=== PATIENT | female | born 1960 | race African-American/Black ===

== ENCOUNTER 2017-10-22 13:28 | Inpatient (IN) | payer OTHER ==
[~2017-10-22] VITALS: Ht 180.3 cm; Wt 113.4 kg
[~2017-10-22 13:28] MED LIST: AMBIEN10 M1 ORAL; AMLODIPINE BESY10 MG PO; ATENOLOL25 MG ORAL; BENTYL20 M1 PO; DILAUDID2 MG ORAL; DONNATAL E16.2 MG/2 PO; FLEXERIL10 MG PO; FLUOXETINE HCL20 M2 ORAL; GLUCOPHAGE500 MG PO; HYDROCHLOROTHIA25 MG ORAL; IBUPROFEN800 MG ORAL; IMITREX50 MG ORAL; LEVAQUIN500 MG ORAL; LIDOCAINE VISCO20 ML PO; MECLIZINE HCL25 MG ORAL; METFORMIN HCL500 M1 ORAL; MIRALAX17 G2 ORAL; NEURONTIN300 MG PO; NORCO 10-325 T1 EACH ORAL; NORCO 10/3251 EA ORAL; NORCO 5-325 TA1 EACH ORAL; NORCO 5-325 TA1 EACH PO; OMEPRAZOLE20 M3 ORAL; PERCOCET 10-321 EACH ORAL; PERCOCET 5-3251 EACH ORAL; PHENERGAN25 M1 ORAL; PHENERGAN6.25 MG/5 ORAL; POTASSIUM CHLO20 ME1 ORAL; PREDNISONE20 MG ORAL; PRILOSEC40 MG ORAL; PROAIR HFA8.5 GM IH; PROAIR HFA8.5 GM INH; PROTONIX20 MG ORAL; PROTONIX40 M2 GT; PROTONIX40 MG ORAL; PROZAC20 MG ORAL; RANITIDINE HCL150 MG ORAL; ROBAXIN-750750 MG PO; ROBAXIN500 MG PO; SENNA8.6 M2 PO; SOMA350 MG PO; TAGAMET HB200 MG PO; TAGAMET400 MG ORAL; TYLENOL ARTHRI650 M1 PO; XANAX2 MG ORAL; ZESTRIL20 MG PO; ZOFRAN ODT4 MG ORAL; ZOFRAN4 M1 ORAL; ZYPREXA ZYDIS10 MG ORAL
[2017-10-22 14:24] VITALS: BP 145/100
[2017-10-22] MEDS ORDERED: Mylanta II UD 30ml ORAL ONE (14:45)
[2017-10-22] MEDS ORDERED: Lidocaine 2% Visc 15ml soln ORAL ONE (14:45)
[2017-10-22 14:48] LABS: BASOPHILS % (AUTO) 0.8 % (0.0-2.0); EOSINOPHILS % (AUTO) 0.1 % (0.0-3.0); LYMPHOCYTES % (AUTO) 15.3 % (20.0-45.0); MEAN CORPUSCULAR HEMOGLOBIN 29.8 PG (27.0-31.0); MEAN CORPUSCULAR HGB CONC 32.5 G/DL (32.0-36.0); MEAN CORPUSCULAR VOLUME 92 FL (80-99); MEAN PLATELET VOLUME 6.5 FL (6.5-10.1); MONOCYTES % (AUTO) 11.2 % (1.0-10.0); NEUTROPHILS % (AUTO) 72.7 % (45.0-75.0); PLATELET COUNT 425 K/UL (150-450); RED CELL DISTRIBUTION WIDTH 13.4 % (11.6-14.8)
[2017-10-22 15:07] LABS: APPEARANCE,URINE CLEAR; KETONES,URINE 1+ (NEGATIVE); LEUKOCYTE ESTERASE ,URINE 1+ (NEGATIVE); NITRITE,URINE NEGATIVE (NEGATIVE); PH,URINE 6 (4.5-8.0); PROTEIN,URINE 3+ (NEGATIVE); UROBILINOGEN,URINE NORMAL MG/DL (0.0-1.0)
[2017-10-22 15:15] LABS: BACTERIA,URINE FEW /HPF; SQUAMOUS EPITHELIAL CELL,UR FEW /LPF (NONE/OCC)
[2017-10-22 15:16] LABS: AMORPHOUS SEDIMENT,UR FEW /LPF
[2017-10-22 15:20] LABS: ALANINE AMINOTRANSFERASE 24 U/L (12-78); ANION GAP 16 mmol/L (5-15); ASPARTATE AMINO TRANSFERASE 24 U/L (15-37); CALCIUM 10.3 MG/DL (8.5-10.1); CARBON DIOXIDE 25 MMOL/L (21-32); CHLORIDE 94 MMOL/L (98-107); CKMB 1.4 NG/ML (0.0-3.6); GLOMERULAR FILTRATION RATE 57.4 mL/min (>60); POTASSIUM 3.3 MMOL/L (3.5-5.1); SODIUM 135 MMOL/L (136-145); TOTAL PROTEIN 8.7 G/DL (6.4-8.2)
[2017-10-22] MEDS ORDERED: Morphine Sulfate 4mg/ml Inj IVP ONE (16:15)
[2017-10-22] MEDS ORDERED: KCl 10% 40mEq/30ml liquid ORAL ONE (16:30)
--- NOTE | 2017-10-22 16:33 | Emergency Room Report ---
History of Present Illness General Chief Complaint: Chest Pain Source: Patient Present Illness HPI The patient states that she has had nausea, vomiting, epigastric pain and a burning sensation in her chest and upper abdomen for the past week. She states that these symptoms have been getting worse. She states that she cannot keep any liquid or any oral intake of any type down. She states she vomits about 12 times a day. She does have a history of gastritis and has had similar symptoms but states that it has been about a year since she's had an episode. She admits that the initial symptoms were nausea, vomiting and diarrhea. She said that the diarrhea has since resolved. She denies fever or chills. She denies dysuria or hematuria. She has no other complaints. Allergies: Coded Allergies: FEXOFENADINE HCL (Verified Allergy, Severe, Shortness of Breath, 08/12/12) IBUPROFEN (Verified Allergy, Severe, Hives, 08/12/12) IODINE (Verified Allergy, Severe, Hives, 08/12/12) MORPHINE (Unverified Allergy, Unknown, 09/17/14) Patient History Past Medical History: see triage record, HTN, psych hx - depression, bipolar Past Surgical History: other - laminectomy Social History: Denies: smoking, alcohol use, drug use Last Menstrual Period: N/A Reviewed Nursing Documentation: PMH: Agreed, PSxH: Agreed Nursing Documentation-PMH Hx Cardiac Problems: Yes Hx Hypertension: Yes Hx Pacemaker: No Hx Asthma: Yes Hx COPD: No Hx Diabetes: No Hx Cancer: No Hx Gastrointestinal Problems: Yes - CHRONIC GASTRITIS Hx Dialysis: No Hx Neurological Problems: No Hx Cerebrovascular Accident: No Hx Seizures: No Review of Systems All Other Systems: negative except mentioned in HPI Physical Exam Vital Signs Date Time Temp Pulse Resp B/P (MAP) Pulse Ox O2 Delivery O2 Flow Rate FiO2 10/22/17 13:49 103 17 160/109 100 Room Air 10/22/17 14:24 98.8 Sp02 EP Interpretation: reviewed, normal General Appearance: no apparent distress, alert, GCS 15, non-toxic Head: normocephalic, atraumatic Eyes: bilateral eye normal inspection, bilateral eye PERRL ENT: hearing grossly normal, normal pharynx, no angioedema, normal voice Neck: full range of motion, supple/symm/no masses Respiratory: chest non-tender, lungs clear, normal breath sounds, speaking full sentences Cardiovascular #1: regular rate, rhythm, no edema Gastrointestinal: normal bowel sounds, soft, non-distended, no guarding, no rebound, tenderness - TTP over the episgastrium Rectal: deferred Musculoskeletal: back normal, gait/station normal, normal range of motion Neurologic: alert, oriented x3, responsive, motor strength/tone normal, sensory intact, speech normal Psychiatric: judgement/insight normal, memory normal, mood/affect normal, no suicidal/homicidal ideation Skin: normal color, no rash, warm/dry, well hydrated Medical Decision Making Diagnostic Impression: Primary Impression: Gastritis Additional Impression: Nausea, vomiting, and diarrhea ER Course This patient presents with intractable vomiting and gastritis. The patient has a history of this. Patient also has chronic pain in a history of of fluid withdrawal. Urine drug screen was positive for barbiturates, benzodiazepines and THC. There may be a component of this contributing to the patient's symptoms. Overall, the patient's laboratory workup was benign other than a mild hypokalemia and findings consistent with dehydration. Patient was given IV fluids and gastritis treatment. Patient continued to have pain and vomiting. She is admitted for intractable vomiting and dehydration. The patient's insurance company requested her transfer to another hospital. The patient is stable for transfer and was transferred due to PCP privileges. Laboratory Tests Test 10/22/17 14:24 White Blood Count 13.0 K/UL (4.8-10.8) H Red Blood Count 6.00 M/UL (4.20-5.40) H Hemoglobin 17.9 G/DL (12.0-16.0) H Hematocrit 55.0 % (37.0-47.0) H Mean Corpuscular Volume 92 FL (80-99) Mean Corpuscular Hemoglobin 29.8 PG (27.0-31.0) Mean Corpuscular Hemoglobin Concent 32.5 G/DL (32.0-36.0) Red Cell Distribution Width 13.4 % (11.6-14.8) Platelet Count 425 K/UL (150-450) Mean Platelet Volume 6.5 FL (6.5-10.1) Neutrophils (%) (Auto) 72.7 % (45.0-75.0) Lymphocytes (%) (Auto) 15.3 % (20.0-45.0) L Monocytes (%) (Auto) 11.2 % (1.0-10.0) H Eosinophils (%) (Auto) 0.1 % (0.0-3.0) Basophils (%) (Auto) 0.8 % (0.0-2.0) Urine Color Yellow Urine Appearance Clear Urine pH 6 (4.5-8.0) Urine Specific [place] 1.015 (1.005-1.035) Urine Protein 3+ (NEGATIVE) H Urine Glucose (UA) Negative (NEGATIVE) Urine Ketones 1+ (NEGATIVE) H Urine Occult Blood 1+ (NEGATIVE) H Urine Nitrite Negative (NEGATIVE) Urine Bilirubin Negative (NEGATIVE) Urine Urobilinogen Normal MG/DL (0.0-1.0) Urine Leukocyte Esterase 1+ (NEGATIVE) H Urine RBC 2-4 /HPF (0 - 2) H Urine WBC 2-4 /HPF (0 - 2) Urine Squamous Epithelial Cells Few /LPF (NONE/OCC) Urine Amorphous Sediment Few /LPF (NONE) H Urine Bacteria Few /HPF (NONE) Sodium Level 135 MMOL/L (136-145) L Potassium Level 3.3 MMOL/L (3.5-5.1) L Chloride Level 94 MMOL/L (98-107) L Carbon Dioxide Level 25 MMOL/L (21-32) Anion Gap 16 mmol/L (5-15) H Blood Urea Nitrogen 11 mg/dL (7-18) Creatinine 1.0 MG/DL (0.55-1.30) Estimate Glomerular Filtration Rate 57.4 mL/min (>60) Glucose Level 107 MG/DL (74-106) H Calcium Level 10.3 MG/DL (8.5-10.1) H Total Bilirubin 0.7 MG/DL (0.2-1.0) Aspartate Amino Transferase (AST) 24 U/L (15-37) Alanine Aminotransferase (ALT) 24 U/L (12-78) Alkaline Phosphatase 115 U/L (46-116) Total Creatine Kinase 153 U/L (26-308) Creatine Kinase MB 1.4 NG/ML (0.0-3.6) Creatine Kinase MB Relative Index 0.9 Troponin I 0.012 ng/mL (0.000-0.056) Total Protein 8.7 G/DL (6.4-8.2) H Albumin 4.4 G/DL (3.4-5.0) Globulin 4.3 g/dL Albumin/Globulin Ratio 1.0 (1.0-2.7) Urine Opiates Screen Negative (NEGATIVE) Urine Barbiturates Screen Positive (NEGATIVE) H Phencyclidine (PCP) Screen Negative (NEGATIVE) Urine Amphetamines Screen Negative (NEGATIVE) Urine Benzodiazepines Screen Positive (NEGATIVE) H Urine Cocaine Screen Negative (NEGATIVE) Urine Marijuana (THC) Screen Positive (NEGATIVE) H EKG Diagnostic Results Rate: tachycardiac Rhythm: other ST Segments: no acute changes Other Impression S.tachycardia Rhythm Strip Diag. Results EP Interpretation: yes Rate: 90's Rhythm: NSR, no PVC's, no ectopy Chest X-Ray Diagnostic Results Chest X-Ray Diagnostic Results : Chest X-Ray Ordered: Yes # of Views/Limited/Complete: 1 View Indication: Other - epigastric pain EP Interpretation: Yes Interpretation: no consolidation, no effusion, no pneumothorax, no acute cardiopulmonary disease Impression: No acute disease Last Vital Signs Date Time Temp Pulse Resp B/P (MAP) Pulse Ox O2 Delivery O2 Flow Rate FiO2 10/22/17 14:54 107 16 Room Air 10/22/17 14:24 98.8 145/100 100 Disposition: XFER SHT-TRM HOSP Condition: Stable Referrals: [facility],REFERRING (PCP) YVES CARTER D.O. Oct 22, 2017 16:33
--- NOTE | 2017-10-22 17:44 | Diagnostic Imaging Report ---
Indication: Chest pain Technique: One view of the chest Comparison: none Findings: No acute infiltrates, effusions, or congestion. Tortuous calcified aorta. Normal heart size. Upper mediastinum unremarkable. No significant change Impression: No acute process.
[2017-10-22 18:06] LABS: BASOPHILS % (AUTO) 0.8 % (0.0-2.0); EOSINOPHILS % (AUTO) 0.1 % (0.0-3.0); LYMPHOCYTES % (AUTO) 17.4 % (20.0-45.0); MEAN CORPUSCULAR HEMOGLOBIN 30.6 PG (27.0-31.0); MEAN CORPUSCULAR HGB CONC 33.4 G/DL (32.0-36.0); MEAN CORPUSCULAR VOLUME 92 FL (80-99); MEAN PLATELET VOLUME 5.8 FL (6.5-10.1); MONOCYTES % (AUTO) 14.7 % (1.0-10.0); NEUTROPHILS % (AUTO) 66.9 % (45.0-75.0); PLATELET COUNT 420 K/UL (150-450); RED BLOOD COUNT 5.31 M/UL (4.20-5.40); RED CELL DISTRIBUTION WIDTH 13.2 % (11.6-14.8); WHITE BLOOD COUNT 11.5 K/UL (4.8-10.8)
[2017-10-22 18:28] LABS: ANION GAP 14 mmol/L (5-15); CALCIUM 9.4 MG/DL (8.5-10.1); CARBON DIOXIDE 27 MMOL/L (21-32); CHLORIDE 100 MMOL/L (98-107); CREATININE 1.1 MG/DL (0.55-1.30); GLOMERULAR FILTRATION RATE 51.3 mL/min (>60); POTASSIUM 3.2 MMOL/L (3.5-5.1); SODIUM 141 MMOL/L (136-145)
[2017-10-22] MEDS ORDERED: AMLODIPINE BESY10 MG ORAL (19:10)
[2017-10-22] MEDS ORDERED: CARVEDILOL3.125 MG ORAL (19:11)
[2017-10-22 19:16] VITALS: BP 144/86
[2017-10-22] MEDS ORDERED: FLUOXETINE HCL40 MG ORAL (19:16)
[2017-10-22] MEDS ORDERED: GABAPENTIN600 MG ORAL (19:17)
[2017-10-22] MEDS ORDERED: LANSOPRAZOLE30 MG ORAL (19:18)
[2017-10-22] MEDS ORDERED: ALEVE PM CAPLE1 EACH PO (19:25)
[2017-10-22] MEDS ORDERED: [UNRECOGNIZED DRUG - OTHER] PO (19:25)
[2017-10-22] MEDS ORDERED: ALPRAZOLAM1 MG ORAL (19:27)
[2017-10-22] MEDS ORDERED: PROBIOTIC PEAR1 EACH PO (19:31)
[2017-10-22 21:16] VITALS: BP 136/79
[2017-10-22] MEDS ORDERED: Morphine Sulfate 2mg/ml Inj IM PRN (23:15)
[2017-10-22] MEDS: Metoclopramide 10mg/2ml Inj IVP PRN (23:32)
[2017-10-23] VITALS (8 sets, daily range): BP systolic 116–161; BP diastolic 75–95
[2017-10-23] MEDS: Metoclopramide 10mg/2ml Inj IVP PRN (05:25)
[2017-10-23 07:03] LABS: BASOPHILS % (AUTO) 1.2 % (0.0-2.0); EOSINOPHILS % (AUTO) 0.4 % (0.0-3.0); MEAN CORPUSCULAR HGB CONC 32.7 G/DL (32.0-36.0); MEAN CORPUSCULAR VOLUME 92 FL (80-99); MEAN PLATELET VOLUME 6.2 FL (6.5-10.1); MONOCYTES % (AUTO) 13.7 % (1.0-10.0); NEUTROPHILS % (AUTO) 66.8 % (45.0-75.0); PLATELET COUNT 411 K/UL (150-450); RED BLOOD COUNT 4.75 M/UL (4.20-5.40); RED CELL DISTRIBUTION WIDTH 13.4 % (11.6-14.8); WHITE BLOOD COUNT 9.7 K/UL (4.8-10.8)
[2017-10-23 07:32] LABS: ALANINE AMINOTRANSFERASE 16 U/L (12-78); ALBUMIN/GLOBULIN RATIO 0.9 (1.0-2.7); ANION GAP 10 mmol/L (5-15); ASPARTATE AMINO TRANSFERASE 16 U/L (15-37); CALCIUM 8.9 MG/DL (8.5-10.1); CARBON DIOXIDE 27 MMOL/L (21-32); CHLORIDE 102 MMOL/L (98-107); GLOMERULAR FILTRATION RATE > 60 mL/min (>60); SODIUM 139 MMOL/L (136-145); TOTAL PROTEIN 7.2 G/DL (6.4-8.2)
--- NOTE | 2017-10-23 08:05 | General Progress Note ---
Assessment/Plan Assessment/Plan (1) Lumbar degenerative disc disease (2) Lumbar spondylosis (3) Herniated nucleus pulposus, lumbar (4) Lumbar radiculopathy (5) History of lumbar surgery We will continue Morphine 2mg IV Q4H PRN severe pain. Pt was d/w Dr. Keller and he concurred. Thank you for the courtesy of this consultation. Subjective Date patient seen: Oct 23, 2017 Time patient seen: 07:30 - am Allergies: Coded Allergies: FEXOFENADINE HCL (Verified Allergy, Severe, Shortness of Breath, 08/12/12) IBUPROFEN (Verified Allergy, Severe, Hives, 08/12/12) IODINE (Verified Allergy, Severe, Hives, 08/12/12) Subjective Constitutional: Denies: chills, diaphoresis, fever, malaise, no symptoms, other , weakness HEENT: Denies: blurred vision, double vision, ear discharge, ear pain, eye pain , mouth pain, mouth swelling, no symptoms, nose congestion, nose pain, other, tearing, throat pain, throat swelling Cardiovascular: Denies: chest pain, edema, irregular heart rate, lightheadedness, no symptoms, other, palpitations, syncope Respiratory: Denies: SOB at rest, SOB with excertion, cough, no symptoms, orthopnea, other, shortness of breath, sputum, stridor, wheezing Gastrointestinal/Abdominal: Reports: abdominal pain, N/V Genitourinary: Denies: burning, discharge, flank pain, frequency, hematuria, incontinence, no symptoms, other, pain, urgency Neurologic/Psychiatric: Denies: anxiety, depressed, emotional problems, headache, no symptoms, numbness, other, paresthesia, pre-existing deficit, seizure, tingling, tremors, weakness Endocrine: Denies: excessive sweating, flushing, increased hunger, increased thirst, increased urine, intolerance to cold, intolerance to heat, no symptoms, other, unexplained weight gain, unexplained weight loss Hematologic/Lymphatic: Denies: anemia, easy bleeding, easy bruising, no symptoms, other Subjective Pt is a known patient from prior admission and has been admitted due to N/V. Continues to c/o lower back pain due to pervious surgery. She was given a dose of Morphine in the ER with no SE or reaction and we started the patient on Morphine 2mg IV Q4H PRN severe pain at this time her pain has been tolerated well and is waiting to be seen by GI. Objective Last 24 Hour Vital Signs Date Time Temp Pulse Resp B/P (MAP) Pulse Ox O2 Delivery O2 Flow Rate FiO2 10/23/17 04:26 98.4 10/23/17 04:00 98.1 88 19 140/75 95 10/23/17 00:31 98.4 10/23/17 00:00 98.6 90 20 141/95 94 10/22/17 21:34 98.8 97 15 136/79 98 Room Air 10/22/17 21:16 98.4 97 15 136/79 98 Room Air 10/22/17 19:16 98.8 96 12 144/86 99 Room Air 10/22/17 17:15 98.8 10/22/17 14:54 107 16 Room Air 10/22/17 14:24 98.8 107 16 145/100 100 Room Air 10/22/17 13:49 103 17 160/109 100 Room Air Laboratory Tests 10/22/17 14:24: White Blood Count 13.0H, Red Blood Count 6.00H, Hemoglobin 17.9H, Hematocrit 55.0H, Mean Corpuscular Volume 92, Mean Corpuscular Hemoglobin 29.8, Mean Corpuscular Hemoglobin Concent 32.5, Red Cell Distribution Width 13.4, Platelet Count 425, Mean Platelet Volume 6.5, Neutrophils (%) (Auto) 72.7, Lymphocytes (% ) (Auto) 15.3L, Monocytes (%) (Auto) 11.2H, Eosinophils (%) (Auto) 0.1, Basophils (%) (Auto) 0.8, Urine Color Yellow, Urine Appearance Clear, Urine pH 6 , Urine Specific [place] 1.015, Urine Protein 3+H, Urine Glucose (UA) Negative, Urine Ketones 1+H, Urine Occult Blood 1+H, Urine Nitrite Negative, Urine Bilirubin Negative, Urine Urobilinogen Normal, Urine Leukocyte Esterase 1+H, Urine RBC 2-4H, Urine WBC 2-4, Urine Squamous Epithelial Cells Few, Urine Amorphous Sediment FewH, Urine Bacteria Few, Sodium Level 135L, Potassium Level 3.3L, Chloride Level 94L, Carbon Dioxide Level 25, Anion Gap 16H, Blood Urea Nitrogen 11, Creatinine 1.0, Estimat Glomerular Filtration Rate 57.4, Glucose Level 107H, Calcium Level 10.3H, Total Bilirubin 0.7, Aspartate Amino Transf ( AST/SGOT) 24, Alanine Aminotransferase (ALT/SGPT) 24, Alkaline Phosphatase 115, Total Creatine Kinase 153, Creatine Kinase MB 1.4, Creatine Kinase MB Relative Index 0.9, Troponin I 0.012, Total Protein 8.7H, Albumin 4.4, Globulin 4.3, Albumin/Globulin Ratio 1.0, Urine Opiates Screen Negative, Urine Barbiturates Screen PositiveH, Phencyclidine (PCP) Screen Negative, Urine Amphetamines Screen Negative, Urine Benzodiazepines Screen PositiveH, Urine Cocaine Screen Negative, Urine Marijuana (THC) Screen PositiveH 10/22/17 17:25: White Blood Count 11.5H, Red Blood Count 5.31, Hemoglobin 16.3H, Hematocrit 48.7H, Mean Corpuscular Volume 92, Mean Corpuscular Hemoglobin 30.6, Mean Corpuscular Hemoglobin Concent 33.4, Red Cell Distribution Width 13.2, Platelet Count 420, Mean Platelet Volume 5.8L, Neutrophils (%) (Auto) 66.9, Lymphocytes ( %) (Auto) 17.4L, Monocytes (%) (Auto) 14.7H, Eosinophils (%) (Auto) 0.1, Basophils (%) (Auto) 0.8, Sodium Level 141, Potassium Level 3.2L, Chloride Level 100, Carbon Dioxide Level 27, Anion Gap 14, Blood Urea Nitrogen 10, Creatinine 1.1, Estimat Glomerular Filtration Rate 51.3, Glucose Level 101, Calcium Level 9.4, Lipase 91 10/23/17 05:40: White Blood Count 9.7, Red Blood Count 4.75, Hemoglobin 14.2, Hematocrit 43.5, Mean Corpuscular Volume 92, Mean Corpuscular Hemoglobin 30.0, Mean Corpuscular Hemoglobin Concent 32.7, Red Cell Distribution Width 13.4, Platelet Count 411, Mean Platelet Volume 6.2L, Neutrophils (%) (Auto) 66.8, Lymphocytes (%) (Auto) 18.0L, Monocytes (%) (Auto) 13.7H, Eosinophils (%) (Auto) 0.4, Basophils (%) ( Auto) 1.2, Sodium Level 139, Potassium Level 3.0L, Chloride Level 102, Carbon Dioxide Level 27, Anion Gap 10, Blood Urea Nitrogen 10, Creatinine 1.0, Estimat Glomerular Filtration Rate > 60, Glucose Level 108H, Calcium Level 8.9, Total Bilirubin 0.6, Aspartate Amino Transf (AST/SGOT) 16, Alanine Aminotransferase ( ALT/SGPT) 16, Alkaline Phosphatase 90, Total Protein 7.2, Albumin 3.4, Globulin 3.8, Albumin/Globulin Ratio 0.9L Height (Feet): 5 Height (Inches): 11.00 Weight (Pounds): 250 Objective General Appearance: no apparent distress, alert EENT: PERRL/EOMI, normal ENT inspection Neck: normal alignment, supple Cardiovascular: normal rate, regular rhythm Respiratory/Chest: lungs clear, normal breath sounds Abdomen: tender Extremities: non-tender Edema: no edema noted Arm (L), no edema noted Arm (R), no edema noted Leg (L), no edema noted Leg (R), no edema noted Pedal (L), no edema noted Pedal (R), no edema noted Generalized Neurologic: alert, oriented x 3 Skin: warm/dry EVELIA BARCLAY N. PAlfonso Oct 23, 2017 08:05
--- NOTE | 2017-10-23 10:58 | Consultation ---
Consult Note Consult Note The patient states that she has had nausea, vomiting, epigastric pain and a burning sensation in her chest and upper abdomen for the past week. She states that these symptoms have been getting worse. She states that she cannot keep any liquid or any oral intake of any type down. She states she vomits about 12 times a day. She does have a history of gastritis and has had similar symptoms but states that it has been about a year since she's had an episode. She admits that the initial symptoms were nausea, vomiting and diarrhea. She said that the diarrhea has since resolved. She denies fever or chills. She denies dysuria or hematuria. She has no other complaints. Allergies: Coded Allergies: FEXOFENADINE HCL (Verified Allergy, Severe, Shortness of Breath, 08/12/12) IBUPROFEN (Verified Allergy, Severe, Hives, 08/12/12) IODINE (Verified Allergy, Severe, Hives, 08/12/12) MORPHINE (Unverified Allergy, Unknown, 09/17/14) Past Medical History: see triage record, HTN, psych hx - depression, bipolar Past Surgical History: other - laminectomy Hx Cardiac Problems: Yes Hx Hypertension: Yes Hx Asthma: Yes Hx Gastrointestinal Problems: Yes - CHRONIC GASTRITIS interviewed examined data reviewed Assessment/Plan status; dehydration- Electrolyte imbalance- Obesity- chronic pain Poly substance abuse UTI HTN Plan: Hydrate- K supplement- keep BP in check check A1c and Lipids NURIA PLATA Oct 23, 2017 10:58
[2017-10-23 11:15] LABS: CHOLESTEROL 237 MG/DL (< 200); CHOLESTEROL/HDL RATIO 2.9 (3.3-4.4); PHOSPHORUS 2.9 MG/DL (2.5-4.9)
[2017-10-23 11:16] LABS: HEMOGLOBIN A1C 6.3 % (4.3-6.0)
[2017-10-23] MEDS: Morphine Sulfate 2mg/ml Inj IVP PRN ×3 (11:21→23:12)
[2017-10-23] MEDS ORDERED: Potassium Chloride 40 MEQ/NS 550ML IVPB ONE ×2 (12:30)
--- NOTE | 2017-10-23 13:03 | Diagnostic Imaging Report ---
Indication: Abdominal pain nausea, vomiting and 6 days Technique: Mcginnis-scale and duplex images of the upper abdomen were obtained Comparison: 09/21/2015 Findings: Gallbladder is unremarkable, without stones, wall thickening, nor pericholecystic fluid. Sonographic Eastman's sign is negative. Common bile duct measures 6 mm in diameter. No intrahepatic biliary ductal dilatation. Liver demonstrates normal echogenicity, no focal abnormality. Portal vein and hepatic veins are patent. Pancreas is unremarkable. Spleen is unremarkable. Left kidney measures 10.7 cm in length. Right kidney measures 10.4 cm length. Both kidneys demonstrate normal echogenicity. There is no hydronephrosis. No focal abnormality . Non-aneurysmal abdominal aorta . No significant interim change Impression: Negative
--- NOTE | 2017-10-23 16:52 | Cardiology Report ---
APPROVED REPORT EKG Measurement Heart [id number] Sinus tachycardia Right atrial enlargement Nonspecific ST abnormality Abnormal ECG
--- NOTE | 2017-10-23 18:15 | Consultation ---
DATE OF CONSULTATION: 10/23/2017 INFECTIOUS DISEASES CONSULTATION CONSULTING PHYSICIAN: Zach Perera M.D. PRIMARY ATTENDING PHYSICIAN: Meg Ayon M.D. REASON FOR CONSULTATION: Leukocytosis. HISTORY OF PRESENT ILLNESS: This is a 57-year-old female admitted yesterday with nausea, vomiting and epigastric pain. This patient's symptoms started one week ago. In the first three days, the patient had also diarrhea. The patient have chronic pain and take Advil sometimes for pain. Before the start of the symptoms, the patient was taking Advil. She had multiple visits to the emergency room because of nausea, vomiting, gastritis, and pain. PAST MEDICAL HISTORY: Significant for laminectomy, hypertension, depression, bipolar disorders, and substance abuse. ALLERGIES: Allergic to ibuprofen and iodine. MEDICATIONS: Amlodipine, carvedilol, famotidine, intravenous fluids with potassium chloride and sodium chloride, morphine, Tylenol, and metoclopramide. SOCIAL HISTORY: Smokes three cigarettes a day, single, and has two grownup sons. Denies alcohol and drug abuse. REVIEW OF SYSTEMS: No fever. No chills. No nausea. No vomiting. No significant abdominal pain. No coughing. Has urinary urgency and hesitancy. PHYSICAL EXAMINATION: VITAL SIGNS: Temperature 98.2, pulse 83, blood pressure 134/90. GENERAL APPEARANCE: Seems well-developed and overweight. HEAD AND NECK: Whitish tongue. HEART: S1 and S2 regular. LUNGS: Clear. ABDOMEN: Soft and nontender. EXTREMITIES: No edema. NEUROLOGIC: Awake, alert, and in no acute distress. LABORATORY AND DIAGNOSTIC DATA: WBC at the time of admission was 13 coming down to 9.7, hemoglobin 14.2, hematocrit 43.5, and platelets 411. Sodium 139, potassium 3, chloride 102, bicarbonate 27, and glucose 108. Chest x-ray, no acute process. Abdominal ultrasound was also negative. IMPRESSION: Nausea and vomiting secondary to gastritis may be secondary to Advil side effects. The patient has oral candidiasis, hypertension, chronic obstructive pulmonary disease, substance abuse. Urine toxicology was positive for benzodiazepine, marijuana, and barbiturate. RECOMMENDATIONS: will give the patient oral nystatin. Need evaluation by gastrointestinal specialist. At the end of my exam, I thank, Dr. Ayon for involving me in the care of this patient. Zach Perera M.D. DR: TRACE JOB#: [id number] CC: SANGEETA
[2017-10-23] MEDS: Nystatin Susp 500,000 units/5ml ORAL SCH ×2 (18:46→20:27)
--- NOTE | 2017-10-23 23:30 | History and Physical Report ---
DATE OF ADMISSION: 10/22/2017 REASON FOR ADMISSION: Gastritis, dehydration, and intractable vomiting. HISTORY OF PRESENT ILLNESS: The patient basically has been complaining of intractable vomiting and diarrhea for the past three days and has had dry heaves and has chest wall tenderness and abdominal pain, made worse by dry heaves. The patient also has some heartburn. Denies rectal bleeding. Denies hematemesis. Pain all over the abdomen on examination as well. PAST MEDICAL HISTORY: History of asthma, anxiety, hypertension, chronic pain syndrome, depression, possible anxiety, GERD, and history of migraines. PAST SURGICAL HISTORY: Back surgery and ovary removal. MEDICATIONS: Breathing treatment, Xanax, amlodipine, Soma, Coreg, fluoxetine, gabapentin, and Prevacid. ALLERGIES: Fexofenadine, ibuprofen, and iodine. FAMILY HISTORY: Noncontributory. SOCIAL HISTORY: History of smoking. No history of alcohol or illicit drugs. REVIEW OF SYSTEMS: HEENT: Headaches. RESPIRATORY: Reports shortness of breath. Denies cough. CARDIOVASCULAR: Denies chest pain. Denies orthopnea. GASTROINTESTINAL: Reports intractable vomiting and abdominal pain for the past three days and chest wall tenderness, most likely due to persistent dry heaves. The patient also has occasional heartburn. EXTREMITIES: Denies pain. CENTRAL NERVOUS SYSTEM: No change in vision or speech pattern. PHYSICAL EXAMINATION: VITAL SIGNS: Temperature 98.6, pulse is 90, and blood pressure 141/95. HEENT: PERRLA. NECK: Supple. No lymphadenopathy. CHEST: Clear to auscultation. GASTROINTESTINAL: Soft. Tender all over, however, abdomen is soft. No organomegaly. Positive bowel sounds. EXTREMITIES: No edema. Reflexes are equal on both sides. Moves all four extremities. SENSORY: Intact to light touch. LABORATORY DATA: Laboratory walker, WBC of 13, hemoglobin 17.9, and platelets 425. Sodium 142, potassium 3.2, chloride 100, BUN of 10, creatinine 1.1, and glucose of 101. ASSESSMENT AND PLAN: Basically hypokalemia as well as leukocytosis and severe elevated hemoglobin as well as gastritis and dehydration and intractable vomiting, is admitted for those reasons. I have also consulted Dr. Keller, Dr. Dobbs, Dr. Browning, Dr. Morales, and Dr. Ghosh for the above-mentioned diagnoses and treatment. Ali Shan Ayon DR: RAMYA JOB#: [id number] CC:
--- NOTE | 2017-10-23 23:41 | General Progress Note ---
Assessment/Plan Assessment/Plan GI CONSULT Assessment - resolved acute diarrhea - improving vomiting - improved WBC - suspect self limited gastroenteritis Recommendations - IVF - supportive care - H2B - Clears Thank you Syeda Ghosh MD Subjective Allergies: Coded Allergies: FEXOFENADINE HCL (Verified Allergy, Severe, Shortness of Breath, 08/12/12) IBUPROFEN (Verified Allergy, Severe, Hives, 08/12/12) IODINE (Verified Allergy, Severe, Hives, 08/12/12) Objective Last 24 Hour Vital Signs Date Time Temp Pulse Resp B/P (MAP) Pulse Ox O2 Delivery O2 Flow Rate FiO2 10/23/17 20:27 77 139/79 10/23/17 20:19 98.0 77 20 139/79 98 Room Air 10/23/17 16:16 98.0 82 20 161/86 98 10/23/17 12:00 98.2 83 16 134/90 99 10/23/17 11:20 98.2 83 16 134/90 99 Room Air 10/23/17 08:00 98.4 80 14 116/79 97 Room Air 10/23/17 04:26 98.4 10/23/17 04:00 98.1 88 19 140/75 95 10/23/17 00:31 98.4 10/23/17 00:00 98.6 90 20 141/95 94 Intake and Output 10/23/17 10/24/17 19:00 07:00 Intake Total 1062.5 ml Output Total 300 ml Balance 762.5 ml Intake IV Total 1062.5 ml Output Urine Total 300 ml # Voids 104 Laboratory Tests 10/23/17 05:40: White Blood Count 9.7, Red Blood Count 4.75, Hemoglobin 14.2, Hematocrit 43.5, Mean Corpuscular Volume 92, Mean Corpuscular Hemoglobin 30.0, Mean Corpuscular Hemoglobin Concent 32.7, Red Cell Distribution Width 13.4, Platelet Count 411, Mean Platelet Volume 6.2L, Neutrophils (%) (Auto) 66.8, Lymphocytes (%) (Auto) 18.0L, Monocytes (%) (Auto) 13.7H, Eosinophils (%) (Auto) 0.4, Basophils (%) ( Auto) 1.2, Sodium Level 139, Potassium Level 3.0L, Chloride Level 102, Carbon Dioxide Level 27, Anion Gap 10, Blood Urea Nitrogen 10, Creatinine 1.0, Estimat Glomerular Filtration Rate > 60, Glucose Level 108H, Hemoglobin A1c 6.3H, Calcium Level 8.9, Phosphorus Level 2.9, Magnesium Level 2.0, Total Bilirubin 0.6, Aspartate Amino Transf (AST/SGOT) 16, Alanine Aminotransferase (ALT/SGPT) 16, Alkaline Phosphatase 90, Total Protein 7.2, Albumin 3.4, Globulin 3.8, Albumin/Globulin Ratio 0.9L, Triglycerides Level 75, Cholesterol Level 237H, LDL Cholesterol 131H, HDL Cholesterol 83H, Cholesterol/HDL Ratio 2.9L Height (Feet): 5 Height (Inches): 11.00 Weight (Pounds): 250 SYEDA GHOSH Oct 23, 2017 23:41
[2017-10-24] VITALS (10 sets, daily range): BP systolic 106–147; BP diastolic 65–94
--- NOTE | 2017-10-24 04:30 | Consultation ---
DATE OF CONSULTATION: NOTE: POOR AUDIO QUALITY HEMATOLOGY/ONCOLOGY CONSULTATION CONSULTING PHYSICIAN: Pb Browning M.D. REQUESTING PHYSICIAN: Meg Ayon M.D. REASON FOR CONSULTATION: Evaluation of erythrocytosis. IDENTIFICATION DATA: Dear Dr. Ayon, The patient is a pleasant 57-year-old female with past medical history significant for epigastric pain, burning sensation in the chest and abdomen for the past several weeks. She is unable to keep any fluids down as well as foods of any type. She has been vomiting and history of gastritis in the past about a year ago, her most recent episode. Denies any fevers or chills. No other complaints. Noted to have leukocytosis. Therefore, Hematology service was consulted for further evaluation and treatment. PAST MEDICAL HISTORY: Hypertension, depression, and bipolar disorder. PAST SURGICAL HISTORY: None noted. ALLERGIES: Ibuprofen, iodine, and morphine. SOCIAL HISTORY: No alcohol, tobacco, or illicit drug use. FAMILY HISTORY: Noncontributory. REVIEW OF SYSTEMS: CONSTITUTIONAL: No fever, chills, or night sweats. SKIN: No rashes, bumps, or itching. HEENT: No headache, hearing or vision changes. BREASTS: No lumps, pain, or discharge. PULMONARY: No cough, sputum, or shortness of breath. GASTROINTESTINAL: No nausea, vomiting, or diarrhea. GENITOURINARY: No dysuria, frequency, or urgency. MUSCULOSKELETAL: No joint swelling, muscle pain, or trauma. PHYSICAL EXAMINATION: GENERAL: In no acute distress. VITAL SIGNS: Reviewed. PULMONARY: Decreased breath sounds. CARDIOVASCULAR: Regular rate. No S3 or S4. ABDOMEN: Soft. Tenderness to palpation in the epigastrium. EXTREMITIES: No cyanosis, swelling, or edema. LABORATORY DATA: WBC initially 13, hemoglobin 17.9, hematocrit 55, and platelet count 425,000. IMAGING: Ultrasound of the abdomen on 10/22/2017 was negative . An x-ray of the chest, no acute process noted. ASSESSMENT AND RECOMMENDATIONS: 1. Leukocytosis, likely related to dehydration. 2. Potentially obstructive sleep apnea versus chronic obstructive pulmonary disease. The patient has improved with hydration. Consider Pulmonary consult. . 3. . 4. Dehydration, currently improved. 5. 6. Chronic pain syndrome. 7. Hypertension . I appreciate the consultation. Pb Browning M.D. DR: CHAD JOB#: [id number] CC:
--- NOTE | 2017-10-24 06:01 | Consultation ---
DATE OF CONSULTATION: 10/23/2017 GASTROENTEROLOGY CONSULTATION REPORT CONSULTING PHYSICIAN: Syeda Ghosh M.D. REFERRING PHYSICIAN: Meg Ayon M.D. CHIEF COMPLAINT: I was asked to see this patient by Dr. Meg Ayon for evaluation of vomiting and diarrhea. HISTORY OF PRESENT ILLNESS: The patient is an obese 57-year-old woman who was in her usual state of health until about 7 days prior to admission when she noticed nausea, vomiting, and diarrheal illness. Diarrhea has then subsided and she just has had some nausea and dry heaves now. She has no hematochezia but she does have some pyrosis and eructation. Her last colonoscopy was about 10 years ago. She feels better today. She had some degree of leukocytosis on admission, which has resolved. 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 PAST MEDICAL HISTORY: History of hypertension and history of reactive airway disease. MEDICATIONS: See chart list for details. FAMILY HISTORY: Positive for coronary artery disease and pancreatic cancer. SOCIAL HISTORY: The patient does smoke, but does not drink alcohol. REVIEW OF SYSTEMS: Otherwise negative. PHYSICAL EXAMINATION: GENERAL: Pleasant, obese woman seen in a chair, in no distress. HEENT: Normocephalic, atraumatic. Sclerae anicteric. Oropharynx is clear. NECK: Supple. CHEST: Clear to auscultation. CARDIOVASCULAR: Regular rhythm and rate. ABDOMEN: Soft and obese with good bowel sounds. EXTREMITIES: Revealed no edema. LABORATORY DATA: Noted. ASSESSMENT: The patient presents with nausea, vomiting, and diarrhea syndrome which is somewhat acute and in multiple respects improving. The patient's diarrhea has already resolved and her vomiting has diminished. Her laboratory parameters have also improved, which resolved with conservative management. I suspect that she has perhaps a primary gastroenteritis that is self-limited. She will be managed conservatively off antibiotics with proton pump inhibitors, histamine 2 blockers and IV fluids. I will write to see if the patient can get clear liquids started on her. Should her symptoms persist, I will continue with further evaluation with further imaging studies and endoscopy can be considered. I will also order stool cultures and Clostridium difficile. RECOMMENDATIONS: Per above discussion and per orders written in the chart. Thank you for asking me to participate in the care of this patient. Syeda Ghosh M.D. DR: MICHEAL JOB#: [id number] CC:
[2017-10-24] MEDS: Morphine Sulfate 2mg/ml Inj IVP PRN ×4 (06:06→20:50)
[2017-10-24] MEDS: Metoclopramide 10mg/2ml Inj IVP PRN ×3 (06:17→19:32)
[2017-10-24 07:05] LABS: BASOPHILS % (AUTO) 1.3 % (0.0-2.0); EOSINOPHILS % (AUTO) 2.5 % (0.0-3.0); LYMPHOCYTES % (AUTO) 28.3 % (20.0-45.0); MEAN CORPUSCULAR HEMOGLOBIN 30.7 PG (27.0-31.0); MEAN CORPUSCULAR HGB CONC 33.2 G/DL (32.0-36.0); MEAN CORPUSCULAR VOLUME 92 FL (80-99); MEAN PLATELET VOLUME 6.3 FL (6.5-10.1); MONOCYTES % (AUTO) 16.1 % (1.0-10.0); NEUTROPHILS % (AUTO) 51.8 % (45.0-75.0); PLATELET COUNT 338 K/UL (150-450); RED BLOOD COUNT 4.48 M/UL (4.20-5.40); RED CELL DISTRIBUTION WIDTH 13.1 % (11.6-14.8); WHITE BLOOD COUNT 7.9 K/UL (4.8-10.8)
[2017-10-24] MEDS: Nystatin Susp 500,000 units/5ml ORAL SCH ×4 (09:08→21:12)
[2017-10-24] MEDS ORDERED: Propofol 200mg/20ml IV ONE (10:00)
[2017-10-24] MEDS ORDERED: Lidocaine 1% MPF 10mg/ml 5ml ONE (10:00)
[2017-10-24] MEDS ORDERED: NS 500ML IV ONE (10:16)
--- NOTE | 2017-10-24 10:17 | Anethesia Preoperative Eval ---
Anesthesia Pre-op PMH/ROS General Date of Evaluation: Oct 24, 2017 Time of Evaluation: 10:06 Anesthesiologist: olaf ASA Score: ASA 3 Mallampati Score Class I : Soft palate, uvula, fauces, pillars visible Class II: Soft palate, uvula, fauces visible Class III: Soft palate, base of uvula visible Class IV: Only hard plate visible Mallampati Classification: Class II Surgeon: earnest Diagnosis: gastritis Surgical Procedure: egd with bx Anesthesia History: none Social History: current smoker Family History: no anesthesia problems Allergies: Coded Allergies: FEXOFENADINE HCL (Verified Allergy, Severe, Shortness of Breath, 08/12/12) IBUPROFEN (Verified Allergy, Severe, Hives, 08/12/12) IODINE (Verified Allergy, Severe, Hives, 08/12/12) Medications: see eMAR Past Medical History Cardiovascular: Reports: HTN Pulmonary: Reports: asthma Gastrointestinal/Genitourinary: Reports: GERD, other - renal calculi Neurologic/Psychiatric: Reports: depression/anxiety Hematology/Immune: Reports: anemia Anesthesia Pre-op Phys. Exam Physician Exam Last Vital Signs Date Time Temp Pulse Resp B/P (MAP) Pulse Ox O2 Delivery O2 Flow Rate FiO2 10/24/17 09:09 74 123/77 10/24/17 08:58 97.7 19 99 Room Air Constitutional: NAD Neurologic: CN 2-12 intact Cardiovascular: RRR Respiratory: CTA Gastrointestinal: S/NT/ND Airway Exam Mallampati Score: Class I MO: full Neck: supple TMD: 2fb ROM: full Teeth: intact Anesthesia Pre-op A/P Labs Hematology Test 10/24/17 05:20 White Blood Count 7.9 K/UL (4.8-10.8) Red Blood Count 4.48 M/UL (4.20-5.40) Hemoglobin 13.7 G/DL (12.0-16.0) Hematocrit 41.4 % (37.0-47.0) Mean Corpuscular Volume 92 FL (80-99) Mean Corpuscular Hemoglobin 30.7 PG (27.0-31.0) Mean Corpuscular Hemoglobin Concent 33.2 G/DL (32.0-36.0) Red Cell Distribution Width 13.1 % (11.6-14.8) Platelet Count 338 K/UL (150-450) Mean Platelet Volume 6.3 FL (6.5-10.1) L Neutrophils (%) (Auto) 51.8 % (45.0-75.0) Lymphocytes (%) (Auto) 28.3 % (20.0-45.0) Monocytes (%) (Auto) 16.1 % (1.0-10.0) H Eosinophils (%) (Auto) 2.5 % (0.0-3.0) Basophils (%) (Auto) 1.3 % (0.0-2.0) Risk Assessment & Plan Assessment: asa3 Plan: mac Status Change Before Surgery: No Pre-Antibiotics Drug: SATISH Garcia Oct 24, 2017 10:17
--- NOTE | 2017-10-24 10:30 | General Progress Note ---
Assessment/Plan Assessment/Plan Assessment - resolved acute diarrhea - hypokalemia - vomiting with streaks of BRB - likely MWT - improved WBC - suspect self limited gastroenteritis Recommendations - IVF - recheck and replace K - supportive care - H2B - EGD today Subjective Allergies: Coded Allergies: FEXOFENADINE HCL (Verified Allergy, Severe, Shortness of Breath, 08/12/12) IBUPROFEN (Verified Allergy, Severe, Hives, 08/12/12) IODINE (Verified Allergy, Severe, Hives, 08/12/12) Subjective still with N/V had streaks of blood in emesis today Diarrhea still resolved Objective Last 24 Hour Vital Signs Date Time Temp Pulse Resp B/P (MAP) Pulse Ox O2 Delivery O2 Flow Rate FiO2 10/24/17 09:09 74 123/77 10/24/17 09:09 74 123/77 10/24/17 08:58 97.7 74 19 123/77 99 Room Air 10/24/17 04:00 99 Room Air 10/24/17 03:37 97.7 73 20 123/73 99 Room Air 10/24/17 00:00 Room Air 10/23/17 23:47 98.0 79 20 129/77 98 Room Air 10/23/17 20:27 77 139/79 10/23/17 20:20 Room Air 10/23/17 20:19 98.0 77 20 139/79 98 Room Air 10/23/17 16:16 98.0 82 20 161/86 98 10/23/17 12:00 98.2 83 16 134/90 99 10/23/17 11:20 98.2 83 16 134/90 99 Room Air Laboratory Tests 10/24/17 05:20: White Blood Count 7.9, Red Blood Count 4.48, Hemoglobin 13.7, Hematocrit 41.4, Mean Corpuscular Volume 92, Mean Corpuscular Hemoglobin 30.7, Mean Corpuscular Hemoglobin Concent 33.2, Red Cell Distribution Width 13.1, Platelet Count 338, Mean Platelet Volume 6.3L, Neutrophils (%) (Auto) 51.8, Lymphocytes (%) (Auto) 28.3, Monocytes (%) (Auto) 16.1H, Eosinophils (%) (Auto) 2.5, Basophils (%) ( Auto) 1.3 Height (Feet): 5 Height (Inches): 11.00 Weight (Pounds): 250 Objective Obese AA woman NCAT supple CTA RRR abd soft obese no edema non focal RIZWANA MARSHALL Oct 24, 2017 10:30
--- NOTE | 2017-10-24 10:35 | Pre-Procedure Note/Attestation ---
Pre-Procedure Note/Attestation Complete Prior to Procedure Planned Procedure: not applicable Procedure Narrative: egd Indications for Procedure Pre-Operative Diagnosis: ugib Attestation I attest that I discussed the nature of the procedure; its benefits; risks and complications; and alternatives (and the risks and benefits of such alternatives ), prior to the procedure, with the patient (or the patient's legal service support representative). I attest that, if there was a reasonable possibility of needing a blood transfusion, the patient (or the patient's legal service support representative) was given the [facility] standardized written summary, pursuant to the [place] Blood Safety Act ([place] Health and Safety Code # 1645, as amended). I attest that I re-evaluated the patient just prior to the surgery and that there has been no change in the patient's H&P, except as documented below: RIZWANA MARSHALL Oct 24, 2017 10:35
--- NOTE | 2017-10-24 11:09 | Immediate Post-Op Evaluation ---
Immediate Post-Op Evalulation Immediate Post-Op Evalulation Procedure: egd with bx Date of Evaluation: Oct 24, 2017 Time of Evaluation: 11:07 IV Fluids: 150ml 0.9ns Blood Products: none Estimated Blood Loss: negligible Blood Pressure Systolic: 115 Blood Pressure Diastolic: 65 Pulse Rate: 75 Respiratory Rate: 18 O2 Sat by Pulse Oximetry: 100 Temperature (Fahrenheit): 97.3 Pain Score (1-10): 0 Nausea: No Vomiting: No Complications none Patient Status: awake, reacts, patent Hydration Status: adequate Drug: SATISH Garcia Oct 24, 2017 11:09
--- NOTE | 2017-10-24 11:12 | 48 Hour Post Anesthesia Eval ---
Post Anesthesia Evaluation Procedure: egd with bx Date of Evaluation: Oct 24, 2017 Time of Evaluation: 11:10 Blood Pressure Systolic: 120 0: 88 Pulse Rate: 77 Respiratory Rate: 18 Temperature (Fahrenheit): 97.3 O2 Sat by Pulse Oximetry: 100 Airway: patent Nausea: No Vomiting: No Pain Intensity: 0 Hydration Status: adequate Cardiopulmonary Status: stable Mental Status/LOC: patient returned to baseline Post-Anesthesia Complications: none Follow-up care needed: N/A SATISH CAMPBELL Oct 24, 2017 11:12
--- NOTE | 2017-10-24 12:58 | Nephrology Progress Note ---
Assessment/Plan Problem List: (1) Dehydration (2) Hypokalemia (3) Uncontrolled pain Assessment dehydration- Electrolyte imbalance- Obesity- chronic pain Poly substance abuse UTI HTN Plan Plan: Hydrate- K supplement- keep BP in check check A1c and Lipids ( elevated) Subjective ROS Limited/Unobtainable: No Constitutional: Reports: malaise Objective Objective Last 24 Hour Vital Signs Date Time Temp Pulse Resp B/P (MAP) Pulse Ox O2 Delivery O2 Flow Rate FiO2 10/24/17 12:15 97.4 77 21 134/94 97 Room Air 10/24/17 11:30 98.0 71 16 132/87 99 Room Air 10/24/17 11:15 71 18 131/85 99 Room Air 10/24/17 11:12 77 18 100 10/24/17 11:09 75 18 100 10/24/17 11:04 79 16 111/72 99 Room Air 10/24/17 10:59 70 17 106/68 100 Simple Mask 6.0 10/24/17 10:54 97.3 73 19 113/65 100 Simple Mask 6.0 10/24/17 09:09 74 123/77 10/24/17 09:09 74 123/77 10/24/17 08:58 97.7 74 19 123/77 99 Room Air 10/24/17 04:00 99 Room Air 10/24/17 03:37 97.7 73 20 123/73 99 Room Air 10/24/17 00:00 Room Air 10/23/17 23:47 98.0 79 20 129/77 98 Room Air 10/23/17 20:27 77 139/79 10/23/17 20:20 Room Air 10/23/17 20:19 98.0 77 20 139/79 98 Room Air 10/23/17 16:16 98.0 82 20 161/86 98 Intake and Output 10/24/17 10/25/17 19:00 07:00 Intake Total 150 ml Balance 150 ml Intake IV Total 150 ml Laboratory Tests 10/24/17 05:20: White Blood Count 7.9, Red Blood Count 4.48, Hemoglobin 13.7, Hematocrit 41.4, Mean Corpuscular Volume 92, Mean Corpuscular Hemoglobin 30.7, Mean Corpuscular Hemoglobin Concent 33.2, Red Cell Distribution Width 13.1, Platelet Count 338, Mean Platelet Volume 6.3L, Neutrophils (%) (Auto) 51.8, Lymphocytes (%) (Auto) 28.3, Monocytes (%) (Auto) 16.1H, Eosinophils (%) (Auto) 2.5, Basophils (%) ( Auto) 1.3, Potassium Level 3.3L Height (Feet): 5 Height (Inches): 11.00 Weight (Pounds): 250 General Appearance: no apparent distress Cardiovascular: normal rate Respiratory/Chest: decreased breath sounds Abdomen: soft Objective no change NURIA PLATA Oct 24, 2017 12:58
--- NOTE | 2017-10-24 13:54 | General Progress Note ---
Assessment/Plan Assessment/Plan (1) Lumbar degenerative disc disease (2) Lumbar spondylosis (3) Herniated nucleus pulposus, lumbar (4) Lumbar radiculopathy (5) History of lumbar surgery We will continue Morphin. Pt was d/w Dr. Keller and he concurred. Subjective Date patient seen: Oct 24, 2017 Time patient seen: 01:30 - pm Allergies: Coded Allergies: FEXOFENADINE HCL (Verified Allergy, Severe, Shortness of Breath, 08/12/12) IBUPROFEN (Verified Allergy, Severe, Hives, 08/12/12) IODINE (Verified Allergy, Severe, Hives, 08/12/12) Subjective Constitutional: Denies: chills, diaphoresis, fever, malaise, no symptoms, other , weakness HEENT: Denies: blurred vision, double vision, ear discharge, ear pain, eye pain , mouth pain, mouth swelling, no symptoms, nose congestion, nose pain, other, tearing, throat pain, throat swelling Cardiovascular: Denies: chest pain, edema, irregular heart rate, lightheadedness, no symptoms, other, palpitations, syncope Respiratory: Denies: SOB at rest, SOB with excertion, cough, no symptoms, orthopnea, other, shortness of breath, sputum, stridor, wheezing Gastrointestinal/Abdominal: Reports: abdominal pain, N/V Genitourinary: Denies: burning, discharge, flank pain, frequency, hematuria, incontinence, no symptoms, other, pain, urgency Neurologic/Psychiatric: Denies: anxiety, depressed, emotional problems, headache, no symptoms, numbness, other, paresthesia, pre-existing deficit, seizure, tingling, tremors, weakness Endocrine: Denies: excessive sweating, flushing, increased hunger, increased thirst, increased urine, intolerance to cold, intolerance to heat, no symptoms, other, unexplained weight gain, unexplained weight loss Hematologic/Lymphatic: Denies: anemia, easy bleeding, easy bruising, no symptoms, other Subjective Pt is sitting up in bed no signs of pain or distress and reports the she is felling better this after noon. Objective Last 24 Hour Vital Signs Date Time Temp Pulse Resp B/P (MAP) Pulse Ox O2 Delivery O2 Flow Rate FiO2 10/24/17 12:15 97.4 77 21 134/94 97 Room Air 10/24/17 11:30 98.0 71 16 132/87 99 Room Air 10/24/17 11:15 71 18 131/85 99 Room Air 10/24/17 11:12 77 18 100 10/24/17 11:09 75 18 100 10/24/17 11:04 79 16 111/72 99 Room Air 10/24/17 10:59 70 17 106/68 100 Simple Mask 6.0 10/24/17 10:54 97.3 73 19 113/65 100 Simple Mask 6.0 10/24/17 09:09 74 123/77 10/24/17 09:09 74 123/77 10/24/17 08:58 97.7 74 19 123/77 99 Room Air 10/24/17 04:00 99 Room Air 10/24/17 03:37 97.7 73 20 123/73 99 Room Air 10/24/17 00:00 Room Air 10/23/17 23:47 98.0 79 20 129/77 98 Room Air 10/23/17 20:27 77 139/79 10/23/17 20:20 Room Air 10/23/17 20:19 98.0 77 20 139/79 98 Room Air 10/23/17 16:16 98.0 82 20 161/86 98 Intake and Output 10/24/17 10/25/17 19:00 07:00 Intake Total 150 ml Balance 150 ml Intake IV Total 150 ml Laboratory Tests 10/24/17 05:20: White Blood Count 7.9, Red Blood Count 4.48, Hemoglobin 13.7, Hematocrit 41.4, Mean Corpuscular Volume 92, Mean Corpuscular Hemoglobin 30.7, Mean Corpuscular Hemoglobin Concent 33.2, Red Cell Distribution Width 13.1, Platelet Count 338, Mean Platelet Volume 6.3L, Neutrophils (%) (Auto) 51.8, Lymphocytes (%) (Auto) 28.3, Monocytes (%) (Auto) 16.1H, Eosinophils (%) (Auto) 2.5, Basophils (%) ( Auto) 1.3, Potassium Level 3.3L Height (Feet): 5 Height (Inches): 11.00 Weight (Pounds): 250 Objective General Appearance: no apparent distress, alert EENT: PERRL/EOMI, normal ENT inspection Neck: normal alignment, supple Cardiovascular: normal rate, regular rhythm Respiratory/Chest: lungs clear, normal breath sounds Abdomen: tender Extremities: non-tender Edema: no edema noted Arm (L), no edema noted Arm (R), no edema noted Leg (L), no edema noted Leg (R), no edema noted Pedal (L), no edema noted Pedal (R), no edema noted Generalized Neurologic: alert, oriented x 3 Skin: warm/dry EVELIA BARCLAY Oct 24, 2017 13:54
--- NOTE | 2017-10-24 14:07 | Infectious Diseases Prog Note ---
Assessment/Plan Assessment/Plan A; Gastritis HPN Polysubstance abuse P; observe off antibiotic Subjective Respiratory: Reports: no symptoms Cardiovascular: Reports: no symptoms Gastrointestinal/Abdominal: Reports: nausea, other - had EGD today Genitourinary: Reports: no symptoms Allergies: Coded Allergies: FEXOFENADINE HCL (Verified Allergy, Severe, Shortness of Breath, 08/12/12) IBUPROFEN (Verified Allergy, Severe, Hives, 08/12/12) IODINE (Verified Allergy, Severe, Hives, 08/12/12) Objective Vital Signs Last 24 Hour Vital Signs Date Time Temp Pulse Resp B/P (MAP) Pulse Ox O2 Delivery O2 Flow Rate FiO2 10/24/17 12:15 97.4 77 21 134/94 97 Room Air 10/24/17 11:30 98.0 71 16 132/87 99 Room Air 10/24/17 11:15 71 18 131/85 99 Room Air 10/24/17 11:12 77 18 100 10/24/17 11:09 75 18 100 10/24/17 11:04 79 16 111/72 99 Room Air 10/24/17 10:59 70 17 106/68 100 Simple Mask 6.0 10/24/17 10:54 97.3 73 19 113/65 100 Simple Mask 6.0 10/24/17 09:09 74 123/77 10/24/17 09:09 74 123/77 10/24/17 08:58 97.7 74 19 123/77 99 Room Air 10/24/17 04:00 99 Room Air 10/24/17 03:37 97.7 73 20 123/73 99 Room Air 10/24/17 00:00 Room Air 10/23/17 23:47 98.0 79 20 129/77 98 Room Air 10/23/17 20:27 77 139/79 10/23/17 20:20 Room Air 10/23/17 20:19 98.0 77 20 139/79 98 Room Air 10/23/17 16:16 98.0 82 20 161/86 98 Height (Feet): 5 Height (Inches): 11.00 Weight (Pounds): 250 General Appearance: no acute distress HEENT: mucous membranes moist Respiratory/Chest: lungs clear Cardiovascular: normal rate Abdomen: soft, non tender Extremities: no edema Neurologic/Psychiatric: alert, oriented x 3, responsive Laboratory Tests Test 10/24/17 05:20 White Blood Count 7.9 K/UL (4.8-10.8) Red Blood Count 4.48 M/UL (4.20-5.40) Hemoglobin 13.7 G/DL (12.0-16.0) Hematocrit 41.4 % (37.0-47.0) Mean Corpuscular Volume 92 FL (80-99) Mean Corpuscular Hemoglobin 30.7 PG (27.0-31.0) Mean Corpuscular Hemoglobin Concent 33.2 G/DL (32.0-36.0) Red Cell Distribution Width 13.1 % (11.6-14.8) Platelet Count 338 K/UL (150-450) Mean Platelet Volume 6.3 FL (6.5-10.1) L Neutrophils (%) (Auto) 51.8 % (45.0-75.0) Lymphocytes (%) (Auto) 28.3 % (20.0-45.0) Monocytes (%) (Auto) 16.1 % (1.0-10.0) H Eosinophils (%) (Auto) 2.5 % (0.0-3.0) Basophils (%) (Auto) 1.3 % (0.0-2.0) Potassium Level 3.3 MMOL/L (3.5-5.1) L Current Medications Medications (Trade) Dose Ordered Sig/Betty Route PRN Reason Start Time Stop Time Status Last Admin Dose Admin Acetaminophen (Tylenol) 650 mg Q4H PRN ORAL Mild Pain/Temp > 100.5 10/22/17 22:45 11/21/17 22:44 10/22/17 23:32 Amlodipine Besylate (Norvasc) 10 mg DAILY ORAL 10/24/17 09:00 11/23/17 08:59 10/24/17 09:09 Carvedilol (Coreg) 3.125 mg EVERY 12 HOURS ORAL 10/23/17 21:00 11/22/17 20:59 10/24/17 09:09 Famotidine (Pepcid I.v.) 20 mg Q12HR IVP 10/23/17 21:00 11/22/17 20:59 10/24/17 09:09 Metoclopramide HCl (Reglan) 5 mg Q6H PRN IVP Nausea & Vomiting 11/28/17 22:45 11/21/17 22:44 10/24/17 12:12 Morphine Sulfate (Morphine Sulfate) 2 mg Q4H PRN IVP severe pain 10/23/17 11:15 10/30/17 11:14 10/24/17 12:13 Nystatin (Nystatin) 5 ml QID ORAL 10/23/17 18:00 10/30/17 17:59 10/24/17 09:08 Sodium Chloride 1,000 ml @ 60 mls/hr [id number] IV 10/23/17 11:30 11/22/17 11:29 10/24/17 03:31 MARSHALL DAY Oct 24, 2017 14:07
--- NOTE | 2017-10-24 16:42 | General Progress Note ---
Assessment/Plan Assessment/Plan ASSESSMENT AND RECOMMENDATIONS: 1. Leukocytosis, likely related to dehydration, has now resolved 2. Nausea and vomiting with bloody emesis --> GI following, s/p egd today 3. Chronic pain syndrome. 4. History of polysubstance abuse Subjective Allergies: Coded Allergies: FEXOFENADINE HCL (Verified Allergy, Severe, Shortness of Breath, 08/12/12) IBUPROFEN (Verified Allergy, Severe, Hives, 08/12/12) IODINE (Verified Allergy, Severe, Hives, 08/12/12) Objective Last 24 Hour Vital Signs Date Time Temp Pulse Resp B/P (MAP) Pulse Ox O2 Delivery O2 Flow Rate FiO2 10/24/17 16:09 98.2 72 21 130/83 99 Room Air 10/24/17 12:15 97.4 77 21 134/94 97 Room Air 10/24/17 11:30 98.0 71 16 132/87 99 Room Air 10/24/17 11:15 71 18 131/85 99 Room Air 10/24/17 11:12 77 18 100 10/24/17 11:09 75 18 100 10/24/17 11:04 79 16 111/72 99 Room Air 10/24/17 10:59 70 17 106/68 100 Simple Mask 6.0 10/24/17 10:54 97.3 73 19 113/65 100 Simple Mask 6.0 10/24/17 09:09 74 123/77 10/24/17 09:09 74 123/77 10/24/17 08:58 97.7 74 19 123/77 99 Room Air 10/24/17 04:00 99 Room Air 10/24/17 03:37 97.7 73 20 123/73 99 Room Air 10/24/17 00:00 Room Air 10/23/17 23:47 98.0 79 20 129/77 98 Room Air 10/23/17 20:27 77 139/79 10/23/17 20:20 Room Air 10/23/17 20:19 98.0 77 20 139/79 98 Room Air Intake and Output 10/24/17 10/25/17 19:00 07:00 Intake Total 150 ml Balance 150 ml Intake IV Total 150 ml Laboratory Tests 10/24/17 05:20: White Blood Count 7.9, Red Blood Count 4.48, Hemoglobin 13.7, Hematocrit 41.4, Mean Corpuscular Volume 92, Mean Corpuscular Hemoglobin 30.7, Mean Corpuscular Hemoglobin Concent 33.2, Red Cell Distribution Width 13.1, Platelet Count 338, Mean Platelet Volume 6.3L, Neutrophils (%) (Auto) 51.8, Lymphocytes (%) (Auto) 28.3, Monocytes (%) (Auto) 16.1H, Eosinophils (%) (Auto) 2.5, Basophils (%) ( Auto) 1.3, Potassium Level 3.3L Height (Feet): 5 Height (Inches): 11.00 Weight (Pounds): 250 Pb Browning Oct 24, 2017 16:42
--- NOTE | 2017-10-24 19:06 | General Progress Note ---
Assessment/Plan Problem List: (1) Gastritis ICD Codes: K29.70 - Gastritis, unspecified, without bleeding SNOMED: 0561899 (2) Anemia ICD Codes: D64.9 - Anemia, unspecified SNOMED: 701735548 (3) Abdominal pain (4) Dehydration ICD Codes: E86.0 - Dehydration SNOMED: 07723014 Status: progressing Status Narrative clinically improving reviewed chart and labs afebrile gstritis improving no diarrhea no vomit Subjective ROS Limited/Unobtainable: Yes Allergies: Coded Allergies: FEXOFENADINE HCL (Verified Allergy, Severe, Shortness of Breath, 08/12/12) IBUPROFEN (Verified Allergy, Severe, Hives, 08/12/12) IODINE (Verified Allergy, Severe, Hives, 08/12/12) Objective Last 24 Hour Vital Signs Date Time Temp Pulse Resp B/P (MAP) Pulse Ox O2 Delivery O2 Flow Rate FiO2 10/24/17 16:09 98.2 72 21 130/83 99 Room Air 10/24/17 12:15 97.4 77 21 134/94 97 Room Air 10/24/17 11:30 98.0 71 16 132/87 99 Room Air 10/24/17 11:15 71 18 131/85 99 Room Air 10/24/17 11:12 77 18 100 10/24/17 11:09 75 18 100 10/24/17 11:04 79 16 111/72 99 Room Air 10/24/17 10:59 70 17 106/68 100 Simple Mask 6.0 10/24/17 10:54 97.3 73 19 113/65 100 Simple Mask 6.0 10/24/17 09:09 74 123/77 10/24/17 09:09 74 123/77 10/24/17 08:58 97.7 74 19 123/77 99 Room Air 10/24/17 04:00 99 Room Air 10/24/17 03:37 97.7 73 20 123/73 99 Room Air 10/24/17 00:00 Room Air 10/23/17 23:47 98.0 79 20 129/77 98 Room Air 10/23/17 20:27 77 139/79 10/23/17 20:20 Room Air 10/23/17 20:19 98.0 77 20 139/79 98 Room Air Intake and Output 10/24/17 10/25/17 19:00 07:00 Intake Total 750 ml 480 ml Balance 750 ml 480 ml Intake Oral 480 ml IV Total 750 ml # Voids 2 Laboratory Tests 10/24/17 05:20: White Blood Count 7.9, Red Blood Count 4.48, Hemoglobin 13.7, Hematocrit 41.4, Mean Corpuscular Volume 92, Mean Corpuscular Hemoglobin 30.7, Mean Corpuscular Hemoglobin Concent 33.2, Red Cell Distribution Width 13.1, Platelet Count 338, Mean Platelet Volume 6.3L, Neutrophils (%) (Auto) 51.8, Lymphocytes (%) (Auto) 28.3, Monocytes (%) (Auto) 16.1H, Eosinophils (%) (Auto) 2.5, Basophils (%) ( Auto) 1.3, Potassium Level 3.3L Height (Feet): 5 Height (Inches): 11.00 Weight (Pounds): 250 Meg Ayon MD Oct 24, 2017 19:06
--- NOTE | 2017-10-24 22:01 | Endoscopy Procedure Note ---
Endoscopy Procedure Note Indication for Procedure: hematemesis Operative Findings/Diagnosis: gastritis Specimen: yes Pt Tolerated Procedure Well: Yes Estimated Blood Loss: none Anesthesiologist: Cecil Cheung Anesthesia: moderate sedation Medication Given: see anesthesia record Implant(s) used?: No 50 yrs or older w/o bx or poly: Not Applicable 10yrs. F/U not recommended: Not Applicable If not recommended, why?: RIZWANA MARSHALL Oct 24, 2017 22:01
--- NOTE | 2017-10-24 22:03 | Brief Operative Note ---
Immediate Post Operative Note Operative Note Chief Complaint: hematemesis Pre-op Diagnosis: ugib Procedure: EGD/Bx Post-op Diagnosis: gastritis Surgeon: earnest Anesthesiologist: Cecil malcolm Anesthesia: MAC Specimen: yes Complications: none Condition: stable Fluids: see rec Estimated Blood Loss: none Drains: none Implant(s) used?: No RIZWANA MARSHALL Oct 24, 2017 22:03
[2017-10-25] VITALS: BP 141/80
--- NOTE | 2017-10-25 02:00 | Procedure Note ---
DATE OF PROCEDURE: 10/24/2017 GASTROENTEROLOGY PROCEDURE REPORT PROCEDURE PERFORMED: Upper gastroendoscopy with biopsy. SURGEON: Syeda Ghosh M.D. ANESTHESIA: Please see the separate anesthesiologist notes for details. PRE-ENDOSCOPIC DIAGNOSIS: Upper gastrointestinal bleed. POST-ENDOSCOPIC DIAGNOSIS: Gastritis. DESCRIPTION OF PROCEDURE: The procedure, its risks, indications, alternatives, and possible complications were explained and informed consent was obtained. The patient was then sedated in the left lateral decubitus position. A diagnostic upper endoscope was introduced through the oropharynx and advanced to the duodenum without difficulty. Examination of the upper gastrointestinal tract revealed mild gastritis in the antrum which was biopsied. No ulcers or tears were identified. The endoscope was removed. The patient was sent to recovery in good condition. COMPLICATIONS: None. RECOMMENDATIONS: 1. Follow up biopsy results. 2. Trial of oral diet. Syeda Ghosh M.D. DR: MICHEAL JOB#: [id number] CC:
[2017-10-25] MEDS: Morphine Sulfate 2mg/ml Inj IVP PRN ×2 (03:56→08:04)
[2017-10-25] MEDS: Metoclopramide 10mg/2ml Inj IVP PRN (03:57)
[2017-10-25 04:00] VITALS: BP 121/84
[2017-10-25 07:12] LABS: BASOPHILS % (AUTO) 1.6 % (0.0-2.0); EOSINOPHILS % (AUTO) 2.1 % (0.0-3.0); LYMPHOCYTES % (AUTO) 24.8 % (20.0-45.0); MEAN CORPUSCULAR HEMOGLOBIN 31.1 PG (27.0-31.0); MEAN CORPUSCULAR HGB CONC 33.6 G/DL (32.0-36.0); MEAN CORPUSCULAR VOLUME 93 FL (80-99); MEAN PLATELET VOLUME 6.7 FL (6.5-10.1); MONOCYTES % (AUTO) 15.6 % (1.0-10.0); NEUTROPHILS % (AUTO) 55.9 % (45.0-75.0); PLATELET COUNT 358 K/UL (150-450); RED BLOOD COUNT 4.11 M/UL (4.20-5.40); WHITE BLOOD COUNT 7.8 K/UL (4.8-10.8)
[2017-10-25 08:00] VITALS: BP 135/90
--- NOTE | 2017-10-25 08:45 | General Progress Note ---
Assessment/Plan Assessment/Plan (1) Lumbar degenerative disc disease (2) Lumbar spondylosis (3) Herniated nucleus pulposus, lumbar (4) Lumbar radiculopathy (5) History of lumbar surgery We will discontinue Morphine and start [facility] 5/325mg PO 1 tab Q4H PRN severe pain and Fioricet PO 1 tab Q6H PRN headache. An Rx for Fioricet PO 1 tab Q6H PRN headache 30 tabs was written for patient in anticipation for discharge. Pt was d/w Dr. Keller and he concurred. Subjective Date patient seen: Oct 25, 2017 Time patient seen: 07:30 - am Allergies: Coded Allergies: FEXOFENADINE HCL (Verified Allergy, Severe, Shortness of Breath, 08/12/12) IBUPROFEN (Verified Allergy, Severe, Hives, 08/12/12) IODINE (Verified Allergy, Severe, Hives, 08/12/12) Subjective Constitutional: Denies: chills, diaphoresis, fever, malaise, weakness HEENT: Denies: blurred vision, double vision, ear discharge, ear pain, eye pain , mouth pain, mouth swelling, nose congestion, nose pain, tearing, throat pain, throat swelling Cardiovascular: Denies: chest pain, edema, irregular heart rate, lightheadedness, palpitations, syncope Respiratory: Denies: SOB at rest, SOB with excertion, cough, orthopnea, other, shortness of breath, sputum, stridor, wheezing Gastrointestinal/Abdominal: Reports: abdominal pain Genitourinary: Denies: burning, discharge, flank pain, frequency, hematuria, incontinence, pain, urgency Neurologic/Psychiatric: Reports: headache Endocrine: Denies: excessive sweating, flushing, increased hunger, increased thirst, increased urine, intolerance to cold, intolerance to heat, unexplained weight gain, unexplained weight loss Hematologic/Lymphatic: Denies: anemia, easy bleeding, easy bruising, Subjective Pt reports that her pain been reduced at a mild level. I d/w her about discontinuing the Morphine and starting her on [facility] she understands. She is c/ o headache which she has had in the past and reports taking Fioricet for which had been beneficial. Objective Last 24 Hour Vital Signs Date Time Temp Pulse Resp B/P (MAP) Pulse Ox O2 Delivery O2 Flow Rate FiO2 10/25/17 04:26 99.6 12/1/17 04:00 99.6 76 19 121/84 98 Room Air 10/25/17 00:00 98.8 68 18 141/80 Room Air 10/24/17 21:12 68 129/82 10/24/17 20:00 99.5 69 18 147/84 98 Room Air 10/24/17 16:09 98.2 72 21 130/83 99 Room Air 10/24/17 12:15 97.4 77 21 134/94 97 Room Air 10/24/17 11:30 98.0 71 16 132/87 99 Room Air 10/24/17 11:15 71 18 131/85 99 Room Air 10/24/17 11:12 77 18 100 10/24/17 11:09 75 18 100 10/24/17 11:04 79 16 111/72 99 Room Air 10/24/17 10:59 70 17 106/68 100 Simple Mask 6.0 10/24/17 10:54 97.3 73 19 113/65 100 Simple Mask 6.0 10/24/17 09:09 74 123/77 10/24/17 09:09 74 123/77 10/24/17 08:58 97.7 74 19 123/77 99 Room Air Laboratory Tests 10/25/17 06:10: White Blood Count 7.8, Red Blood Count 4.11L, Hemoglobin 12.8, Hematocrit 38.1, Mean Corpuscular Volume 93, Mean Corpuscular Hemoglobin 31.1H, Mean Corpuscular Hemoglobin Concent 33.6, Red Cell Distribution Width 13.0, Platelet Count 358, Mean Platelet Volume 6.7, Neutrophils (%) (Auto) 55.9, Lymphocytes (%) (Auto) 24.8, Monocytes (%) (Auto) 15.6H, Eosinophils (%) (Auto) 2.1, Basophils (%) ( Auto) 1.6 Height (Feet): 5 Height (Inches): 11.00 Weight (Pounds): 250 Objective General Appearance: no apparent distress, alert EENT: PERRL/EOMI, normal ENT inspection Neck: normal alignment, supple Cardiovascular: normal rate, regular rhythm Respiratory/Chest: lungs clear, normal breath sounds Abdomen: tender Extremities: non-tender Edema: no edema noted Arm (L), no edema noted Arm (R), no edema noted Leg (L), no edema noted Leg (R), no edema noted Pedal (L), no edema noted Pedal (R), no edema noted Generalized Neurologic: alert, oriented x 3 Skin: warm/dry EVELIA BARCLAY Oct 25, 2017 08:45
[2017-10-25] MEDS: Nystatin Susp 500,000 units/5ml ORAL SCH ×4 (08:48→21:11)
[2017-10-25 12:00] VITALS: BP 137/72
[2017-10-25] MEDS: Norco 5mg/325mg tab ORAL PRN ×2 (13:18→20:28)
--- NOTE | 2017-10-25 13:40 | Infectious Diseases Prog Note ---
Assessment/Plan Assessment/Plan A; Gastritis HPN Polysubstance abuse P; observe off antibiotic Subjective ROS Limited/Unobtainable: No Constitutional: Reports: no symptoms Respiratory: Reports: no symptoms Cardiovascular: Reports: no symptoms Gastrointestinal/Abdominal: Reports: no symptoms Genitourinary: Reports: no symptoms Allergies: Coded Allergies: FEXOFENADINE HCL (Verified Allergy, Severe, Shortness of Breath, 08/12/12) IBUPROFEN (Verified Allergy, Severe, Hives, 08/12/12) IODINE (Verified Allergy, Severe, Hives, 08/12/12) Objective Vital Signs Last 24 Hour Vital Signs Date Time Temp Pulse Resp B/P (MAP) Pulse Ox O2 Delivery O2 Flow Rate FiO2 10/25/17 12:00 97.3 59 20 137/72 98 10/25/17 08:48 76 121/84 10/25/17 08:48 76 121/84 10/25/17 08:00 97.3 66 20 135/90 96 10/25/17 04:26 99.6 10/25/17 04:00 99.6 76 19 121/84 98 Room Air 10/25/17 00:00 98.8 68 18 141/80 Room Air 10/24/17 21:12 68 129/82 10/24/17 20:00 99.5 69 18 147/84 98 Room Air 10/24/17 16:09 98.2 72 21 130/83 99 Room Air Height (Feet): 5 Height (Inches): 11.00 Weight (Pounds): 250 General Appearance: no acute distress HEENT: mucous membranes moist Respiratory/Chest: lungs clear Cardiovascular: normal rate Abdomen: soft, non tender Extremities: no edema Neurologic/Psychiatric: alert, oriented x 3, responsive Laboratory Tests Test 10/25/17 06:10 White Blood Count 7.8 K/UL (4.8-10.8) Red Blood Count 4.11 M/UL (4.20-5.40) L Hemoglobin 12.8 G/DL (12.0-16.0) Hematocrit 38.1 % (37.0-47.0) Mean Corpuscular Volume 93 FL (80-99) Mean Corpuscular Hemoglobin 31.1 PG (27.0-31.0) H Mean Corpuscular Hemoglobin Concent 33.6 G/DL (32.0-36.0) Red Cell Distribution Width 13.0 % (11.6-14.8) Platelet Count 358 K/UL (150-450) Mean Platelet Volume 6.7 FL (6.5-10.1) Neutrophils (%) (Auto) 55.9 % (45.0-75.0) Lymphocytes (%) (Auto) 24.8 % (20.0-45.0) Monocytes (%) (Auto) 15.6 % (1.0-10.0) H Eosinophils (%) (Auto) 2.1 % (0.0-3.0) Basophils (%) (Auto) 1.6 % (0.0-2.0) Current Medications Medications (Trade) Dose Ordered Sig/Betty Route PRN Reason Start Time Stop Time Status Last Admin Dose Admin Acetaminophen (Tylenol) 650 mg Q4H PRN ORAL Mild Pain/Temp > 100.5 10/22/17 22:45 11/21/17 22:44 10/22/17 23:32 Acetaminophen/ Butalbital/ Caffeine (Fioricet) 1 tab Q6H PRN ORAL headache 10/25/17 09:30 11/24/17 09:29 10/25/17 10:24 Acetaminophen/ Hydrocodone Bitart (Caro 5/325) 1 tab Q4H PRN ORAL Severe Pain (Pain Scale 7-10) 10/25/17 09:30 11/01/17 09:29 10/25/17 13:18 Amlodipine Besylate (Norvasc) 10 mg DAILY ORAL 10/24/17 09:00 11/23/17 08:59 10/25/17 08:48 Carvedilol (Coreg) 3.125 mg EVERY 12 HOURS ORAL 10/23/17 21:00 11/22/17 20:59 10/25/17 08:48 Famotidine (Pepcid I.v.) 20 mg Q12HR IVP 10/23/17 21:00 11/22/17 20:59 10/25/17 08:48 Metoclopramide HCl (Reglan) 5 mg Q6H PRN IVP Nausea & Vomiting 10/22/17 22:45 11/21/17 22:44 10/25/17 03:57 Nystatin (Nystatin) 5 ml QID ORAL 10/23/17 18:00 10/30/17 17:59 10/25/17 13:18 Sodium Chloride 1,000 ml @ 60 mls/hr [id number] IV 10/23/17 11:30 11/22/17 11:29 10/24/17 16:33 MARSHALL DAY Oct 25, 2017 13:40
--- NOTE | 2017-10-25 14:50 | General Progress Note ---
Assessment/Plan Assessment/Plan ASSESSMENT AND RECOMMENDATIONS: 1. Leukocytosis, likely related to dehydration, has now resolved 2. Nausea and vomiting with bloody emesis --> GI following, s/p egd today --> improved 3. Chronic pain syndrome. 4. History of polysubstance abuse Subjective Allergies: Coded Allergies: FEXOFENADINE HCL (Verified Allergy, Severe, Shortness of Breath, 08/12/12) IBUPROFEN (Verified Allergy, Severe, Hives, 08/12/12) IODINE (Verified Allergy, Severe, Hives, 08/12/12) All Systems: reviewed and negative except above Subjective feeling better Objective Last 24 Hour Vital Signs Date Time Temp Pulse Resp B/P (MAP) Pulse Ox O2 Delivery O2 Flow Rate FiO2 10/25/17 12:00 97.3 59 20 137/72 98 10/25/17 08:48 76 121/84 10/25/17 08:48 76 121/84 10/25/17 08:00 97.3 66 20 135/90 96 10/25/17 04:26 99.6 10/25/17 04:00 99.6 76 19 121/84 98 Room Air 10/25/17 00:00 98.8 68 18 141/80 Room Air 10/24/17 21:12 68 129/82 10/24/17 20:00 99.5 69 18 147/84 98 Room Air 10/24/17 16:09 98.2 72 21 130/83 99 Room Air Laboratory Tests 10/25/17 06:10: White Blood Count 7.8, Red Blood Count 4.11L, Hemoglobin 12.8, Hematocrit 38.1, Mean Corpuscular Volume 93, Mean Corpuscular Hemoglobin 31.1H, Mean Corpuscular Hemoglobin Concent 33.6, Red Cell Distribution Width 13.0, Platelet Count 358, Mean Platelet Volume 6.7, Neutrophils (%) (Auto) 55.9, Lymphocytes (%) (Auto) 24.8, Monocytes (%) (Auto) 15.6H, Eosinophils (%) (Auto) 2.1, Basophils (%) ( Auto) 1.6 Height (Feet): 5 Height (Inches): 11.00 Weight (Pounds): 250 General Appearance: no apparent distress EENT: normal ENT inspection Neck: normal alignment Cardiovascular: normal peripheral pulses Respiratory/Chest: chest wall non-tender Abdomen: non tender, soft Edema: mild edema Pb Browning Oct 25, 2017 14:50
[2017-10-25 16:15] VITALS: BP 139/90
--- NOTE | 2017-10-25 16:17 | Nephrology Progress Note ---
Assessment/Plan Problem List: (1) Dehydration (2) Hypokalemia (3) Uncontrolled pain Assessment Status: dehydration- Electrolyte imbalance- Obesity- chronic pain Poly substance abuse UTI HTN Plan Plan: no labs today Hydrate- K supplement- keep BP in check check A1c and Lipids ( elevated) Subjective ROS Limited/Unobtainable: No Objective Objective Last 24 Hour Vital Signs Date Time Temp Pulse Resp B/P (MAP) Pulse Ox O2 Delivery O2 Flow Rate FiO2 10/25/17 12:00 98 Room Air 10/25/17 12:00 97.3 59 20 137/72 98 10/25/17 08:48 76 121/84 10/25/17 08:48 76 121/84 10/25/17 08:00 96 Room Air 10/25/17 08:00 97.3 66 20 135/90 96 10/25/17 04:26 99.6 10/25/17 04:00 99.6 76 19 121/84 98 Room Air 10/25/17 00:00 98.8 68 18 141/80 Room Air 10/24/17 21:12 68 129/82 10/24/17 20:00 99.5 69 18 147/84 98 Room Air Laboratory Tests 10/25/17 06:10: White Blood Count 7.8, Red Blood Count 4.11L, Hemoglobin 12.8, Hematocrit 38.1, Mean Corpuscular Volume 93, Mean Corpuscular Hemoglobin 31.1H, Mean Corpuscular Hemoglobin Concent 33.6, Red Cell Distribution Width 13.0, Platelet Count 358, Mean Platelet Volume 6.7, Neutrophils (%) (Auto) 55.9, Lymphocytes (%) (Auto) 24.8, Monocytes (%) (Auto) 15.6H, Eosinophils (%) (Auto) 2.1, Basophils (%) ( Auto) 1.6 Height (Feet): 5 Height (Inches): 11.00 Weight (Pounds): 250 General Appearance: no apparent distress Objective no change NURIA PLATA Oct 25, 2017 16:17
[2017-10-25] MEDS ORDERED: KCl 10% 40mEq/30ml liquid ORAL ONE (17:00)
[2017-10-25 20:00] VITALS: BP 125/71
--- NOTE | 2017-10-25 21:27 | General Progress Note ---
Assessment/Plan Problem List: (1) Gastritis ICD Codes: K29.70 - Gastritis, unspecified, without bleeding SNOMED: 2503956 (2) Anemia ICD Codes: D64.9 - Anemia, unspecified SNOMED: 912085311 (3) Abdominal pain (4) Dehydration ICD Codes: E86.0 - Dehydration SNOMED: 95254581 Status: progressing Assessment/Plan gastroenteritis improving afebrile advance diet per gi once cleared by gi and id will dc reviewed chart and albs Subjective ROS Limited/Unobtainable: Yes Allergies: Coded Allergies: FEXOFENADINE HCL (Verified Allergy, Severe, Shortness of Breath, 08/12/12) IBUPROFEN (Verified Allergy, Severe, Hives, 08/12/12) IODINE (Verified Allergy, Severe, Hives, 08/12/12) Objective Last 24 Hour Vital Signs Date Time Temp Pulse Resp B/P (MAP) Pulse Ox O2 Delivery O2 Flow Rate FiO2 10/25/17 21:11 68 125/71 10/25/17 20:00 98.2 68 20 125/71 100 10/25/17 16:15 97.7 74 20 139/90 99 Room Air 10/25/17 12:00 98 Room Air 10/25/17 12:00 97.3 59 20 137/72 98 10/25/17 08:48 76 121/84 10/25/17 08:48 76 121/84 10/25/17 08:00 96 Room Air 10/25/17 08:00 97.3 66 20 135/90 96 10/25/17 04:26 99.6 10/25/17 04:00 99.6 76 19 121/84 98 Room Air 10/25/17 00:00 98.8 68 18 141/80 Room Air Intake and Output 10/25/17 10/26/17 19:00 07:00 Intake Total 480 ml Balance 480 ml Intake Oral 480 ml Laboratory Tests 10/25/17 06:10: White Blood Count 7.8, Red Blood Count 4.11L, Hemoglobin 12.8, Hematocrit 38.1, Mean Corpuscular Volume 93, Mean Corpuscular Hemoglobin 31.1H, Mean Corpuscular Hemoglobin Concent 33.6, Red Cell Distribution Width 13.0, Platelet Count 358, Mean Platelet Volume 6.7, Neutrophils (%) (Auto) 55.9, Lymphocytes (%) (Auto) 24.8, Monocytes (%) (Auto) 15.6H, Eosinophils (%) (Auto) 2.1, Basophils (%) ( Auto) 1.6 Height (Feet): 5 Height (Inches): 11.00 Weight (Pounds): 250 Meg Ayon MD Oct 25, 2017 21:27
--- NOTE | 2017-10-25 21:58 | General Progress Note ---
Assessment/Plan Assessment/Plan Assessment - resolved acute diarrhea - hypokalemia - vomiting with streaks of BRB - likely MWT - improved WBC - suspect self limited gastroenteritis Recommendations - IVF - recheck and replace K - supportive care - H2B Subjective Allergies: Coded Allergies: FEXOFENADINE HCL (Verified Allergy, Severe, Shortness of Breath, 08/12/12) IBUPROFEN (Verified Allergy, Severe, Hives, 08/12/12) IODINE (Verified Allergy, Severe, Hives, 08/12/12) Subjective tolerating liquids hesitant to advance pain better wants to go home Objective Last 24 Hour Vital Signs Date Time Temp Pulse Resp B/P (MAP) Pulse Ox O2 Delivery O2 Flow Rate FiO2 10/25/17 21:27 97.7 10/25/17 21:11 68 125/71 10/25/17 20:00 98.2 68 20 125/71 100 10/25/17 16:15 97.7 74 20 139/90 99 Room Air 10/25/17 12:00 98 Room Air 10/25/17 12:00 97.3 59 20 137/72 98 10/25/17 08:48 76 121/84 10/25/17 08:48 76 121/84 10/25/17 08:00 96 Room Air 10/25/17 08:00 97.3 66 20 135/90 96 10/25/17 04:26 99.6 10/25/17 04:00 99.6 76 19 121/84 98 Room Air 10/25/17 00:00 98.8 68 18 141/80 Room Air Intake and Output 10/25/17 10/26/17 19:00 07:00 Intake Total 480 ml Balance 480 ml Intake Oral 480 ml Laboratory Tests 10/25/17 06:10: White Blood Count 7.8, Red Blood Count 4.11L, Hemoglobin 12.8, Hematocrit 38.1, Mean Corpuscular Volume 93, Mean Corpuscular Hemoglobin 31.1H, Mean Corpuscular Hemoglobin Concent 33.6, Red Cell Distribution Width 13.0, Platelet Count 358, Mean Platelet Volume 6.7, Neutrophils (%) (Auto) 55.9, Lymphocytes (%) (Auto) 24.8, Monocytes (%) (Auto) 15.6H, Eosinophils (%) (Auto) 2.1, Basophils (%) ( Auto) 1.6 Height (Feet): 5 Height (Inches): 11.00 Weight (Pounds): 250 Objective Obese AA woman NCAT supple CTA RRR abd soft obese no edema non focal RIZWANA MARSHALL Oct 25, 2017 21:58
[2017-10-26] VITALS (7 sets, daily range): BP systolic 105–139; BP diastolic 59–90
[2017-10-26] MEDS: Norco 5mg/325mg tab ORAL PRN ×5 (03:37→21:43)
[2017-10-26 07:39] LABS: BASOPHILS % (AUTO) 1.4 % (0.0-2.0); EOSINOPHILS % (AUTO) 2.5 % (0.0-3.0); LYMPHOCYTES % (AUTO) 29.3 % (20.0-45.0); MEAN CORPUSCULAR HEMOGLOBIN 30.5 PG (27.0-31.0); MEAN CORPUSCULAR HGB CONC 33.1 G/DL (32.0-36.0); MEAN CORPUSCULAR VOLUME 92 FL (80-99); MEAN PLATELET VOLUME 6.9 FL (6.5-10.1); MONOCYTES % (AUTO) 14.8 % (1.0-10.0); NEUTROPHILS % (AUTO) 52.1 % (45.0-75.0); PLATELET COUNT 321 K/UL (150-450); RED BLOOD COUNT 4.57 M/UL (4.20-5.40); RED CELL DISTRIBUTION WIDTH 12.8 % (11.6-14.8); WHITE BLOOD COUNT 5.4 K/UL (4.8-10.8)
--- NOTE | 2017-10-26 08:41 | General Progress Note ---
Assessment/Plan Problem List: (1) Gastritis ICD Codes: K29.70 - Gastritis, unspecified, without bleeding SNOMED: 0208894 (2) Anemia ICD Codes: D64.9 - Anemia, unspecified SNOMED: 253762896 (3) Abdominal pain (4) Dehydration ICD Codes: E86.0 - Dehydration SNOMED: 83769634 Status: progressing Assessment/Plan gastroenteritis improving advance diet per gi once cleared by gi and id will dc clinically improving Subjective ROS Limited/Unobtainable: Yes Allergies: Coded Allergies: FEXOFENADINE HCL (Verified Allergy, Severe, Shortness of Breath, 08/12/12) IBUPROFEN (Verified Allergy, Severe, Hives, 08/12/12) IODINE (Verified Allergy, Severe, Hives, 08/12/12) Objective Last 24 Hour Vital Signs Date Time Temp Pulse Resp B/P (MAP) Pulse Ox O2 Delivery O2 Flow Rate FiO2 10/26/17 04:36 97.6 10/26/17 04:00 97.9 63 18 126/79 99 Room Air 10/26/17 04:00 Room Air 10/26/17 00:47 Room Air 10/26/17 00:00 97.6 63 20 120/70 97 10/25/17 21:11 68 125/71 10/25/17 20:00 98.2 68 20 125/71 100 10/25/17 20:00 Room Air 10/25/17 16:15 97.7 74 20 139/90 99 Room Air 10/25/17 12:00 98 Room Air 10/25/17 12:00 97.3 59 20 137/72 98 10/25/17 08:48 76 121/84 10/25/17 08:48 76 121/84 Laboratory Tests 10/26/17 04:50: White Blood Count 5.4, Red Blood Count 4.57, Hemoglobin 13.9, Hematocrit 42.0, Mean Corpuscular Volume 92, Mean Corpuscular Hemoglobin 30.5, Mean Corpuscular Hemoglobin Concent 33.1, Red Cell Distribution Width 12.8, Platelet Count 321, Mean Platelet Volume 6.9, Neutrophils (%) (Auto) 52.1, Lymphocytes (%) (Auto) 29.3, Monocytes (%) (Auto) 14.8H, Eosinophils (%) (Auto) 2.5, Basophils (%) ( Auto) 1.4, Sodium Level [Pending], Potassium Level [Pending], Chloride Level [ Pending], Carbon Dioxide Level [Pending], Blood Urea Nitrogen [Pending], Creatinine [Pending], Estimat Glomerular Filtration Rate [Pending], Glucose Level [Pending], Calcium Level [Pending], Phosphorus Level [Pending], Magnesium Level [Pending], Total Bilirubin [Pending], Aspartate Amino Transf (AST/SGOT) [ Pending], Alanine Aminotransferase (ALT/SGPT) [Pending], Alkaline Phosphatase [ Pending], C-Reactive Protein, Quantitative [Pending], Pro-B-Type Natriuretic Peptide [Pending], Total Protein [Pending], Albumin [Pending], Globulin [Pending ] Height (Feet): 5 Height (Inches): 11.00 Weight (Pounds): 250 Meg Ayon MD Oct 26, 2017 08:41
[2017-10-26] MEDS: Nystatin Susp 500,000 units/5ml ORAL SCH ×4 (09:04→21:42)
--- NOTE | 2017-10-26 09:19 | Nephrology Progress Note ---
Assessment/Plan Problem List: (1) Dehydration (2) Hypokalemia (3) Uncontrolled pain Assessment Status: dehydration- Electrolyte imbalance- Obesity- chronic pain Poly substance abuse UTI HTN Plan Plan: Labs pending- add PO Reglan Hydrate- K supplement- keep BP in check check A1c and Lipids ( elevated) Subjective ROS Limited/Unobtainable: No Constitutional: Reports: malaise Subjective not tolerating PO yet Objective Objective Last 24 Hour Vital Signs Date Time Temp Pulse Resp B/P (MAP) Pulse Ox O2 Delivery O2 Flow Rate FiO2 10/26/17 09:04 65 139/90 10/26/17 09:04 65 139/90 10/26/17 08:00 97.9 65 20 139/90 99 10/26/17 04:36 97.6 10/26/17 04:00 97.9 63 18 126/79 99 Room Air 10/26/17 04:00 Room Air 10/26/17 00:47 Room Air 10/26/17 00:00 97.6 63 20 120/70 97 10/25/17 21:11 68 125/71 10/25/17 20:00 98.2 68 20 125/71 100 10/25/17 20:00 Room Air 10/25/17 16:15 97.7 74 20 139/90 99 Room Air 10/25/17 12:00 98 Room Air 10/25/17 12:00 97.3 59 20 137/72 98 Laboratory Tests 10/26/17 04:50: White Blood Count 5.4, Red Blood Count 4.57, Hemoglobin 13.9, Hematocrit 42.0, Mean Corpuscular Volume 92, Mean Corpuscular Hemoglobin 30.5, Mean Corpuscular Hemoglobin Concent 33.1, Red Cell Distribution Width 12.8, Platelet Count 321, Mean Platelet Volume 6.9, Neutrophils (%) (Auto) 52.1, Lymphocytes (%) (Auto) 29.3, Monocytes (%) (Auto) 14.8H, Eosinophils (%) (Auto) 2.5, Basophils (%) ( Auto) 1.4, Sodium Level [Pending], Potassium Level [Pending], Chloride Level [ Pending], Carbon Dioxide Level [Pending], Blood Urea Nitrogen [Pending], Creatinine [Pending], Estimat Glomerular Filtration Rate [Pending], Glucose Level [Pending], Calcium Level [Pending], Phosphorus Level [Pending], Magnesium Level [Pending], Total Bilirubin [Pending], Aspartate Amino Transf (AST/SGOT) [ Pending], Alanine Aminotransferase (ALT/SGPT) [Pending], Alkaline Phosphatase [ Pending], C-Reactive Protein, Quantitative [Pending], Pro-B-Type Natriuretic Peptide [Pending], Total Protein [Pending], Albumin [Pending], Globulin [Pending ] Height (Feet): 5 Height (Inches): 11.00 Weight (Pounds): 250 General Appearance: no apparent distress Abdomen: soft Objective no change NURIA PLATA Oct 26, 2017 09:19
[2017-10-26 09:44] LABS: ALANINE AMINOTRANSFERASE 27 U/L (12-78); ANION GAP 10 mmol/L (5-15); ASPARTATE AMINO TRANSFERASE 29 U/L (15-37); CALCIUM 8.8 MG/DL (8.5-10.1); CARBON DIOXIDE 25 MMOL/L (21-32); CHLORIDE 103 MMOL/L (98-107); CREATININE 0.7 MG/DL (0.55-1.30); GLOMERULAR FILTRATION RATE > 60 mL/min (>60); MAGNESIUM 1.9 MG/DL (1.8-2.4); POTASSIUM 4.1 MMOL/L (3.5-5.1); SODIUM 138 MMOL/L (136-145); TOTAL PROTEIN 6.3 G/DL (6.4-8.2)
--- NOTE | 2017-10-26 11:23 | Infectious Diseases Prog Note ---
Assessment/Plan Assessment/Plan antibiotics : none A 1. leucocytosis resolved 2. gastroenteritis 3. HTN P 1. stool cultures, c.diff 2. will follow up cultures Subjective Constitutional: Denies: fever, chills Respiratory: Denies: shortness of breath, dry cough Gastrointestinal/Abdominal: Reports: nausea, vomiting, diarrhea Musculoskeletal: Reports: pain - in abdomen Allergies: Coded Allergies: FEXOFENADINE HCL (Verified Allergy, Severe, Shortness of Breath, 08/12/12) IBUPROFEN (Verified Allergy, Severe, Hives, 08/12/12) IODINE (Verified Allergy, Severe, Hives, 08/12/12) Objective Vital Signs Last 24 Hour Vital Signs Date Time Temp Pulse Resp B/P (MAP) Pulse Ox O2 Delivery O2 Flow Rate FiO2 10/26/17 09:04 65 139/90 10/26/17 09:04 65 139/90 10/26/17 08:00 97.9 65 20 139/90 99 10/26/17 04:36 97.6 10/26/17 04:00 97.9 63 18 126/79 99 Room Air 10/26/17 04:00 Room Air 10/26/17 00:47 Room Air 10/26/17 00:00 97.6 63 20 120/70 97 10/25/17 21:11 68 125/71 10/25/17 20:00 98.2 68 20 125/71 100 10/25/17 20:00 Room Air 10/25/17 16:15 97.7 74 20 139/90 99 Room Air 10/25/17 12:00 98 Room Air 10/25/17 12:00 97.3 59 20 137/72 98 Height (Feet): 5 Height (Inches): 11.00 Weight (Pounds): 250 Respiratory/Chest: lungs clear Cardiovascular: normal rate, regular rhythm, no gallop/murmur Abdomen: tender Extremities: no edema Laboratory Tests Test 10/26/17 04:50 White Blood Count 5.4 K/UL (4.8-10.8) Red Blood Count 4.57 M/UL (4.20-5.40) Hemoglobin 13.9 G/DL (12.0-16.0) Hematocrit 42.0 % (37.0-47.0) Mean Corpuscular Volume 92 FL (80-99) Mean Corpuscular Hemoglobin 30.5 PG (27.0-31.0) Mean Corpuscular Hemoglobin Concent 33.1 G/DL (32.0-36.0) Red Cell Distribution Width 12.8 % (11.6-14.8) Platelet Count 321 K/UL (150-450) Mean Platelet Volume 6.9 FL (6.5-10.1) Neutrophils (%) (Auto) 52.1 % (45.0-75.0) Lymphocytes (%) (Auto) 29.3 % (20.0-45.0) Monocytes (%) (Auto) 14.8 % (1.0-10.0) H Eosinophils (%) (Auto) 2.5 % (0.0-3.0) Basophils (%) (Auto) 1.4 % (0.0-2.0) Sodium Level 138 MMOL/L (136-145) Potassium Level 4.1 MMOL/L (3.5-5.1) Chloride Level 103 MMOL/L (98-107) Carbon Dioxide Level 25 MMOL/L (21-32) Anion Gap 10 mmol/L (5-15) Blood Urea Nitrogen 8 mg/dL (7-18) Creatinine 0.7 MG/DL (0.55-1.30) Estimat Glomerular Filtration Rate > 60 mL/min (>60) Glucose Level 75 MG/DL (74-106) Calcium Level 8.8 MG/DL (8.5-10.1) Phosphorus Level 4.0 MG/DL (2.5-4.9) Magnesium Level 1.9 MG/DL (1.8-2.4) Total Bilirubin 0.7 MG/DL (0.2-1.0) Aspartate Amino Transf (AST/SGOT) 29 U/L (15-37) Alanine Aminotransferase (ALT/SGPT) 27 U/L (12-78) Alkaline Phosphatase 87 U/L (46-116) C-Reactive Protein, Quantitative 4.0 mg/dL (0.00-0.90) H Pro-B-Type Natriuretic Peptide 42 pg/mL (0-125) Total Protein 6.3 G/DL (6.4-8.2) L Albumin 3.1 G/DL (3.4-5.0) L Globulin 3.2 g/dL Albumin/Globulin Ratio 1.0 (1.0-2.7) BLAINE GODFREY Oct 26, 2017 11:23
[2017-10-26] MEDS ORDERED: 1/2 NS 1000ml IV ONE (15:31)
--- NOTE | 2017-10-26 21:47 | General Progress Note ---
Assessment/Plan Assessment/Plan Assessment - resolved acute diarrhea - hypokalemia - vomiting - improved WBC - suspect self limited gastroenteritis Recommendations - IVF - recheck and replace K - supportive care - H2B Subjective Allergies: Coded Allergies: FEXOFENADINE HCL (Verified Allergy, Severe, Shortness of Breath, 08/12/12) IBUPROFEN (Verified Allergy, Severe, Hives, 08/12/12) IODINE (Verified Allergy, Severe, Hives, 08/12/12) Subjective tolerating clear liquids wants full liquids pain better Objective Last 24 Hour Vital Signs Date Time Temp Pulse Resp B/P (MAP) Pulse Ox O2 Delivery O2 Flow Rate FiO2 10/26/17 21:00 60 105/59 10/26/17 20:16 98.0 60 20 105/59 Room Air 10/26/17 16:00 98.0 72 20 125/79 99 10/26/17 12:00 98.0 71 20 129/77 97 10/26/17 09:04 65 139/90 10/26/17 09:04 65 139/90 10/26/17 08:00 97.9 65 20 139/90 99 10/26/17 04:36 97.6 10/26/17 04:00 97.9 63 18 126/79 99 Room Air 10/26/17 04:00 Room Air 10/26/17 00:47 Room Air 10/26/17 00:00 97.6 63 20 120/70 97 Intake and Output 10/26/17 10/27/17 19:00 07:00 Intake Total 600 ml Balance 600 ml Intake Oral 600 ml # Voids 7 # Bowel Movements 3 Laboratory Tests 10/26/17 04:50: White Blood Count 5.4, Red Blood Count 4.57, Hemoglobin 13.9, Hematocrit 42.0, Mean Corpuscular Volume 92, Mean Corpuscular Hemoglobin 30.5, Mean Corpuscular Hemoglobin Concent 33.1, Red Cell Distribution Width 12.8, Platelet Count 321, Mean Platelet Volume 6.9, Neutrophils (%) (Auto) 52.1, Lymphocytes (%) (Auto) 29.3, Monocytes (%) (Auto) 14.8H, Eosinophils (%) (Auto) 2.5, Basophils (%) ( Auto) 1.4, Sodium Level 138, Potassium Level 4.1, Chloride Level 103, Carbon Dioxide Level 25, Anion Gap 10, Blood Urea Nitrogen 8, Creatinine 0.7, Estimat Glomerular Filtration Rate > 60, Glucose Level 75, Calcium Level 8.8, Phosphorus Level 4.0, Magnesium Level 1.9, Total Bilirubin 0.7, Aspartate Amino Transf (AST/SGOT) 29, Alanine Aminotransferase (ALT/SGPT) 27, Alkaline Phosphatase 87, C-Reactive Protein, Quantitative 4.0H, Pro-B-Type Natriuretic Peptide 42, Total Protein 6.3L, Albumin 3.1L, Globulin 3.2, Albumin/Globulin Ratio 1.0 Height (Feet): 5 Height (Inches): 11.00 Weight (Pounds): 250 Objective Obese AA woman NCAT supple CTA RRR abd soft obese no edema non focal RIZWANA MARSHALL Oct 26, 2017 21:47
[2017-10-27] MEDS: Norco 5mg/325mg tab ORAL PRN (03:45)
[2017-10-27 04:00] VITALS: BP 111/58
[2017-10-27] MEDS ORDERED: 1/2 NS 1000ml IV ONE (08:19)
--- NOTE | 2017-10-27 09:06 | General Progress Note ---
Assessment/Plan Assessment/Plan ASSESSMENT AND RECOMMENDATIONS: 1. Leukocytosis, likely related to dehydration, has now resolved 2. Nausea and vomiting with bloody emesis --> GI following, s/p egd today --> improved,able to tolerate liquids 3. Chronic pain syndrome. 4. History of polysubstance abuse Subjective Date patient seen: Oct 26, 2017 Allergies: Coded Allergies: FEXOFENADINE HCL (Verified Allergy, Severe, Shortness of Breath, 08/12/12) IBUPROFEN (Verified Allergy, Severe, Hives, 08/12/12) IODINE (Verified Allergy, Severe, Hives, 08/12/12) All Systems: reviewed and negative except above Subjective having less pain, still naseous Objective Last 24 Hour Vital Signs Date Time Temp Pulse Resp B/P (MAP) Pulse Ox O2 Delivery O2 Flow Rate FiO2 10/27/17 04:00 98.1 64 20 111/58 97 Room Air 10/26/17 23:50 98.1 62 20 113/67 98 Room Air 10/26/17 21:00 60 105/59 10/26/17 20:16 98.0 60 20 105/59 Room Air 10/26/17 16:00 98.0 72 20 125/79 99 10/26/17 12:00 98.0 71 20 129/77 97 Height (Feet): 5 Height (Inches): 11.00 Weight (Pounds): 250 General Appearance: no apparent distress EENT: normal ENT inspection Neck: normal alignment Edema: trace edema Neurologic: supervisor color making II-XII grossly normal Skin: normal pigmentation Pb Browning Oct 27, 2017 09:06
--- NOTE | 2017-10-29 12:29 | Discharge Summary ---
Discharge Summary Hospital Course Date of Admission Oct 22, 2017 at 20:20 Date of Discharge Oct 27, 2017 at 08:20 Admitting Diagnosis gastritis w/ dehydration and intractable vomiting. ALANNAH Gillis is a 57 year old female who was admitted on Oct 22, 2017 at 20:20 for Gastritis With Dehydration And Hospital Course dc summary #[id number] Discharge Discharge Disposition Patient signed AMA Discharge Diagnoses: Discharge Instructions Discharge Instructions Special Instructions I have been assigned to complete a D/C Summary on this account. I was not involved in the patient management Mary Whitten NP ([place]te[place]) Oct 29, 2017 12:29
--- NOTE | 2017-10-29 21:45 | Discharge Summary 2 SIG ---
DATE OF ADMISSION: 10/22/2017 DATE OF SIGNING AGAINST MEDICAL ADVISE: 10/27/2017 REASON FOR ADMISSION: 57-year-old female with a history of hypertension, obesity, and spinal surgery presented to emergency department with nausea, vomiting and epigastric pain for the past week. She was unable to keep down any food or fluids. She reported multiple episodes of vomiting with tinge of blood. The patient had a history of gastritis and had similar symptoms in the past, about a year ago. She also reported diarrhea. No fever. No chills. No dysuria. No hematuria. The patient was afebrile and slightly tachycardic. Blood pressure was elevated -160/109, mild leukocytosis, WBC- 13. Stable hemoglobin and hematocrit. Urinalysis with +3 protein, +1 ketones but no evidence of infection. Potassium -3.3. Otherwise stable electrolytes. Stable renal parameters. Glucose -107. LFT within normal limits. Troponin was negative. Urine toxicology screen was positive for marijuana, benzodiazepine, and barbiturate. Chest x-ray revealed no acute cardiopulmonary pathology. EKG revealed sinus tachycardia, but no acute ischemic changes. The patient was admitted for further management with the diagnosis of nausea, vomiting, diarrhea, and gastritis. HOSPITAL COURSE: The patient was admitted. GI consult was requested. The patient subsequently undergone upper endoscopy with biopsy. Biopsy revealed mild chronic gastritis but no evidence of Helicobacter infection. The patient was started on PPI. Diet was slowly advanced as tolerated. The patient was initially NPO and on the IV fluids. Electrolytes replaced as needed. ID followed for leukocytosis. Stool for culture and stool for C. difficile were both negative. Leukocytosis resolved. According to library science professor, who also followed the patient, leukocytosis was likely reactive secondary to dehydration and resolved with proper hydration. Acute diarrhea resolved. Potassium replaced and was stable. Per GI specialist, the patient likely had self-limiting episode of gastroenteritis, which was improving. Pain management was provided. Blood pressure was managed with the current regimen and remained stable. Lipid panel revealed elevated total cholesterol and elevated LDL. Patient was educated on therapeutic life style changes. The patient was counseled on abstinence from street drugs. Pain specialist seen and evaluated the patient. Pain regimen was optimized as per pain specialist recommendation. On 10/27/2017, the patient decided to sign against medical advice. The risks and consequences of signing against medical advice were discussed with the patient. The patient verbalized understanding, but insisted on leaving due to the fear of missing the train. FINAL DIAGNOSES: 1. Gastroenteritis, self-limiting, improving. 2. Nausea, vomiting, and diarrhea, resolved, likely due to the gastroenteritis. 3. Upper gastrointestinal bleeding. 4. Status post esophagogastroduodenoscopy with biopsy. 5. Gastritis. 6. Dehydration, resolved. 7. Hypokalemia, corrected. 8. Hypertension. 9. Polysubstance abuse. 10. Obesity. 11.Lumbar degenerative disc disease 12. Lumbar spondylosis 13. Herniated nucleus pulposus, lumbar 14. Lumbar radiculopathy 15. History of lumbar surgery Meg Ayon M.D. I have been assigned to dictate discharge summary on this account and I was not involved in the patient's management. Mary RomeroHospital For Special SurgeryMaria L N.PCaden DR: MELISSA JOB#: [id number] CC: SANGEETA
== END 2017-10-27 08:20 | disposition left against medical advice (07) | DRG 249 ==
LOC: EMR 14:13 → 4E 20:20 → EDBEDREQ 21:06
PROC: 0DB78ZX Excision of Stomach, Pylorus, Via Natural or Artificial Opening Endoscopic, Diagnostic (ICD-10-PCS; principal; 2017-10-24 10:42)
DX: E86.0 Dehydration (principal); K52.9 Noninfective gastroenteritis and colitis, unspecified; E87.8 Other disorders of electrolyte and fluid balance, not elsewhere classified; K92.2 Gastrointestinal hemorrhage, unspecified; E87.6 Hypokalemia; I10 Essential (primary) hypertension; K29.70 Gastritis, unspecified, without bleeding; N39.0 Urinary tract infection, site not specified; G89.29 Other chronic pain; E66.9 Obesity, unspecified; F19.10 Other psychoactive substance abuse, uncomplicated; Z88.6 Allergy status to analgesic agent; Z88.8 Allergy status to other drugs, medicaments and biological substances
CPT/HCPCS: 36415; 71010; 76700; 76705; 80048; 80053; 80061; 80307; 81003; 82550; 82553; 83036; 83690; 83735; 83880; 84100; 84132; 84484; 85025; 86140; 87045; 87324; 93005; 94003; 94150; 99285; J2405; J2765; J8499

== ENCOUNTER 2019-05-28 11:39 | Emergency (ER) | payer MEDICAID, OTHER ==
[~2019-05-28] VITALS: Ht 180.3 cm; Wt 117.9 kg
[~2019-05-28 11:39] MED LIST changes: +ALEVE PM CAPLE1 EACH PO; +ALPRAZOLAM1 MG ORAL; +AMLODIPINE BESY10 MG ORAL; +CARVEDILOL3.125 MG ORAL; +FLUOXETINE HCL40 MG ORAL; +GABAPENTIN600 MG ORAL; +LANSOPRAZOLE30 MG ORAL; +PROBIOTIC PEAR1 EACH PO; +[UNRECOGNIZED DRUG - OTHER] PO
--- NOTE | 2019-05-28 11:55 | NUR ---
ED Nurse Note: Pt came in from home due to abdominal pain with nausea/vomiting x 5 days. No emesis upon arrival. Pain on medial upper abdomen area, 10/10 shelley. Bowel sounds present on all quadrants. Last bowel movement was this morning. Reported that pt has hx of Gastritis. AOx4, VSS shelley. Will cont to monitor.
[2019-05-28 11:57] VITALS: BP 112/79
--- NOTE | 2019-05-28 12:04 | NUR ---
ED Nurse Note: Blood drawn and sent to lab.
[2019-05-28] MEDS ORDERED: DiphenhydrAMINE 50mg/ml Inj IVP ONE (12:15)
[2019-05-28] MEDS ORDERED: Morphine Sulfate 4mg/ml Inj (IV USE ONLY) IVP ONE (12:15)
[2019-05-28] MEDS ORDERED: Promethazine HCl 25 MG in NS 55 ML IVPB ONE (12:15)
[2019-05-28] MEDS ORDERED: VENTOLIN HFA18 GM INH (12:18)
[2019-05-28] MEDS ORDERED: PANTOPRAZOLE SO40 MG ORAL (12:18)
[2019-05-28] MEDS ORDERED: ZOFRAN ODT8 MG ORAL (12:18)
[2019-05-28] MEDS ORDERED: PERCOCET 10-321 EACH ORAL (12:18)
--- NOTE | 2019-05-28 12:41 | Emergency Room Report ---
History of Present Illness General Chief Complaint: Vomiting Source: Patient Present Illness HPI Patient presents with complaints of increased epigastric pain nausea vomiting reports that this seems to be happening to her about twice a year Patient reports recently taking chantix for sedation of smoking soon after that she started having some irritation she did stop the medication however Now has had increased irritation and vomiting Denies any fevers or chills denies any diarrhea denies any flank pain denies any other trauma Allergies: Coded Allergies: FEXOFENADINE HCL (Verified Allergy, Severe, Shortness of Breath, 08/12/12) IBUPROFEN (Verified Allergy, Severe, Hives, 08/12/12) IODINE (Verified Allergy, Severe, Hives, 08/12/12) Patient History Past Medical History: see triage record Pertinent Family History: none Last Menstrual Period: menopause Reviewed Nursing Documentation: PMH: Agreed; PSxH: Agreed Nursing Documentation-PMH Hx Cardiac Problems: Yes Hx Hypertension: Yes Hx Pacemaker: No Hx Asthma: Yes Hx COPD: No Hx Diabetes: No Hx Cancer: No Hx Gastrointestinal Problems: Yes - GERD, Chronic gastritis Hx Dialysis: No Hx Neurological Problems: No Hx Cerebrovascular Accident: No Hx Seizures: No Review of Systems All Other Systems: negative except mentioned in HPI Physical Exam Vital Signs Date Time Temp Pulse Resp B/P (MAP) Pulse Ox O2 Delivery O2 Flow Rate FiO2 05/28/19 11:44 98.2 92 16 109/77 (88) 97 Room Air Sp02 EP Interpretation: reviewed, normal General Appearance: well appearing, no apparent distress Head: normocephalic, atraumatic Eyes: bilateral eye PERRL, bilateral eye EOMI ENT: hearing grossly normal, normal pharynx, TMs + canals normal, uvula midline Neck: full range of motion, supple, no meningismus, no bony tend Respiratory: lungs clear, normal breath sounds, no rhonchi, no respiratory distress, no retraction, no accessory muscle use Cardiovascular #1: normal peripheral pulses, regular rate, rhythm, no edema, no gallop, no JVD, no murmur Gastrointestinal: normal bowel sounds, non tender - Subjectively points to epigastric area, soft, no mass, no organomegaly, non-distended, no guarding, no hernia, no pulsatile mass, no rebound Genitourinary: no CVA tenderness Musculoskeletal: normal inspection Neurologic: oriented x3, responsive, cheese cook III-XII nml as tested, motor strength/ tone normal, sensory intact Psychiatric: mood/affect normal Lymphatic: normal inspection, no adenopathy Medical Decision Making Diagnostic Impression: Primary Impression: Vomiting Labs Test 05/28/19 12:24 05/28/19 13:00 White Blood Count 7.3 K/UL (4.8-10.8) Red Blood Count 5.62 M/UL (4.20-5.40) Hemoglobin 16.7 G/DL (12.0-16.0) Hematocrit 50.3 % (37.0-47.0) Mean Corpuscular Volume 90 FL (80-99) Mean Corpuscular Hemoglobin 29.6 PG (27.0-31.0) Mean Corpuscular Hemoglobin Concent 33.1 G/DL (32.0-36.0) Red Cell Distribution Width 15.0 % (11.6-14.8) Platelet Count 390 K/UL (150-450) Mean Platelet Volume 5.7 FL (6.5-10.1) Neutrophils (%) (Auto) 60.5 % (45.0-75.0) Lymphocytes (%) (Auto) 27.2 % (20.0-45.0) Monocytes (%) (Auto) 8.7 % (1.0-10.0) Eosinophils (%) (Auto) 1.4 % (0.0-3.0) Basophils (%) (Auto) 2.1 % (0.0-2.0) Sodium Level 141 MMOL/L (136-145) Potassium Level 3.7 MMOL/L (3.5-5.1) Chloride Level 103 MMOL/L (98-107) Carbon Dioxide Level 25 MMOL/L (21-32) Anion Gap 13 mmol/L (5-15) Blood Urea Nitrogen 7 mg/dL (7-18) Creatinine 1.4 MG/DL (0.55-1.30) Estimat Glomerular Filtration Rate 46.9 mL/min (>60) Glucose Level 133 MG/DL (74-106) Calcium Level 10.2 MG/DL (8.5-10.1) Total Bilirubin 0.6 MG/DL (0.2-1.0) Aspartate Amino Transf (AST/SGOT) 15 U/L (15-37) Alanine Aminotransferase (ALT/SGPT) 13 U/L (12-78) Alkaline Phosphatase 78 U/L (46-116) Total Protein 7.9 G/DL (6.4-8.2) Albumin 4.4 G/DL (3.4-5.0) Globulin 3.5 g/dL Albumin/Globulin Ratio 1.3 (1.0-2.7) Lipase 78 U/L (73-393) Urine Color Brown Urine Appearance Slightly cloudy Urine pH 5 (4.5-8.0) Urine Specific [place] 1.020 (1.005-1.035) Urine Protein 2+ (NEGATIVE) Urine Glucose (UA) Negative (NEGATIVE) Urine Ketones 1+ (NEGATIVE) Urine Blood 1+ (NEGATIVE) Urine Nitrite Negative (NEGATIVE) Urine Bilirubin Negative (NEGATIVE) Urine Urobilinogen 1 MG/DL (0.0-1.0) Urine Leukocyte Esterase 2+ (NEGATIVE) Urine RBC 0-2 /HPF (0 - 2) Urine WBC 2-4 /HPF (0 - 2) Urine Squamous Epithelial Cells Moderate /LPF (NONE/OCC) Urine Bacteria Moderate /HPF (NONE) Last Vital Signs Date Time Temp Pulse Resp B/P (MAP) Pulse Ox O2 Delivery O2 Flow Rate FiO2 05/28/19 11:57 98.2 60 20 112/79 99 Room Air Scripts Metoclopramide Hcl* (REGLAN*) 10 Mg Tablet 10 MG ORAL BID for 7 Days, TAB Prov: Meg Melo DO 05/28/19 Metoclopramide Hcl* (REGLAN*) 10 Mg Tablet 10 MG ORAL THREE TIMES A DAY for 21 Days, TAB Prov: Meg Melo DO 05/28/19 Meg Melo DO May 28, 2019 12:41
[2019-05-28 12:43] LABS: BASOPHILS % (AUTO) 2.1 % (0.0-2.0); EOSINOPHILS % (AUTO) 1.4 % (0.0-3.0); HEMATOCRIT 50.3 % (37.0-47.0); HEMOGLOBIN 16.7 G/DL (12.0-16.0); LYMPHOCYTES % (AUTO) 27.2 % (20.0-45.0); MEAN CORPUSCULAR VOLUME 90 FL (80-99); MONOCYTES % (AUTO) 8.7 % (1.0-10.0); NEUTROPHILS % (AUTO) 60.5 % (45.0-75.0); PLATELET COUNT 390 K/UL (150-450); RED BLOOD COUNT 5.62 M/UL (4.20-5.40); WHITE BLOOD COUNT 7.3 K/UL (4.8-10.8)
[2019-05-28 12:46] LABS: ANION GAP 13 mmol/L (5-15); BLOOD UREA NITROGEN 7 mg/dL (7-18); CALCIUM 10.2 MG/DL (8.5-10.1); CARBON DIOXIDE 25 MMOL/L (21-32); CHLORIDE 103 MMOL/L (98-107); CREATININE 1.4 MG/DL (0.55-1.30); POTASSIUM 3.7 MMOL/L (3.5-5.1); SODIUM 141 MMOL/L (136-145)
[2019-05-28 12:51] LABS: ALANINE AMINOTRANSFERASE 13 U/L (12-78); ALBUMIN 4.4 G/DL (3.4-5.0); ALBUMIN/GLOBULIN RATIO 1.3 (1.0-2.7); ALKALINE PHOSPHATASE 78 U/L (46-116); ASPARTATE AMINO TRANSFERASE 15 U/L (15-37); BILIRUBIN,TOTAL 0.6 MG/DL (0.2-1.0)
--- NOTE | 2019-05-28 13:02 | NUR ---
ED Nurse Note: Urine collected and sent to lab.
[2019-05-28 13:21] LABS: APPEARANCE,URINE SLIGHTLY CLOUDY; BILIRUBIN, URINE NEGATIVE (NEGATIVE); COLOR,URINE BROWN; GLUCOSE, URINE (UA) NEGATIVE (NEGATIVE); KETONES,URINE 1+ (NEGATIVE); LEUKOCYTE ESTERASE ,URINE 2+ (NEGATIVE); NITRITE,URINE NEGATIVE (NEGATIVE); PH,URINE 5 (4.5-8.0); PROTEIN,URINE 2+ (NEGATIVE); UROBILINOGEN,URINE 1 MG/DL (0.0-1.0)
[2019-05-28] MEDS ORDERED: REGLAN10 MG ORAL ×2 (14:17→14:36)
[2019-05-28 14:27] VITALS: BP 124/78
[2019-05-28 14:39] VITALS: BP 124/78
--- NOTE | 2019-05-28 14:39 | NUR ---
ER DISCHARGE NOTE: Patient is cleared to be discharged per ERMD, pt is aox4, on room air, with stable vital signs. pt was given dc and prescription instructions, pt was able to verbalize understanding, pt id band and iv site removed without complications. pt is able to ambulate with steady gait. pt took all belongings.
== END 2019-05-28 14:39 | disposition home or self-care (01) ==
LOC: EMR 12:40
DX: R11.10 Vomiting, unspecified (principal); R10.13 Epigastric pain; Z88.6 Allergy status to analgesic agent; Z91.041 Radiographic dye allergy status; K21.9 Gastro-esophageal reflux disease without esophagitis; I10 Essential (primary) hypertension
CPT/HCPCS: 36415; 80053; 81003; 83690; 85025; 87086; 96365; 96375; 99284; J1200; J2270; J2550